=== PATIENT | female | born 1980 | race Caucasian/White ===

== ENCOUNTER 2019-08-21 12:25 | Emergency (ER) | payer BC, SELFPAY ==
[2019-08-21 12:44] VITALS: BP 135/96; PULSE 104; RESP 16; TEMP 36.8; O2SAT 98; BMI 34.3
--- NOTE | 2019-08-21 12:52 | XRR_ITS ---
PROCEDURE INFORMATION: Exam: XR Chest, 1 View Exam date and time: 08/21/2019 1:20 PM Age: 39 years old Clinical indication: Cough; Additional info: Cough/congestion/sob, increased hr x 1 week TECHNIQUE: Imaging protocol: XR of the chest Views: 1 view. COMPARISON: CR Chest 1 [place] [id number] 03/31/2019 9:39 AM FINDINGS: Lungs: Unremarkable. No consolidation. Pleural space: Unremarkable. No pleural effusion. No pneumothorax. Heart/Mediastinum: Unremarkable. No cardiomegaly. Bones/joints: Unremarkable. XR/XR chest 1V portable [id number] IMPRESSION: No acute findings.
[2019-08-21 13:10] LABS: Basophils % 0.2 %; Eosinophils # 0.1 10^3/uL (0.0-0.8); Eosinophils % 0.9 %; Hematocrit 47.8 % (37.0-47.0); Hemoglobin 15.5 g/dL (11.5-15.3); Lymphocytes % 28.2 %; Mean Corpuscular HGB Conc 32.4 g/dL (30.0-36.0); Mean Corpuscular Hemoglobin 28.7 pg (28.0-34.0); Mean Corpuscular Volume 88.5 fL (81-99); Mean Platelet Volume 10.4 fL (7.4-10.4); Monocytes # 0.8 10^3/uL (0.2-0.9); Monocytes % 7.3 %; Neutrophils # 6.7 10^3/uL (1.8-7.7); Neutrophils % 63.1 %; Nucleated Red Blood Cells % 0 %; Platelet Count 345 10^3/cmm (130-400); Red Cell Distribution Width 12.9 % (12.1-15.1); White Blood Count 10.6 10^3/uL (4.0-10.0)
--- NOTE | 2019-08-21 13:18 | ED_ITS ---
Entered by Anitra Wong, acting as scribe for Heather Hughes MD HPI - Chest Pain General: Chief Complaint: Chest Pain Stated Complaint: cp/sob Time Seen by Provider: 08/21/19 13:18 Source: patient and RN notes reviewed Mode of arrival: ambulatory Limitations: no limitations History of Present Illness: HPI narrative: 39 yo female presents to ED with complaints of heart palpitations and chest discomfort. She said it feels like her heart is going to beat out of chest. She said this began last Sunday. She has since quit caffeine and stopped smoking. She started antibiotics for an abscessed tooth on the before her heart palpitations began. She said the palpitations are worse with exertion. She had 4 teeth pulled on Sunday due to the infection spreading. She took Tylenol with codeine on Sunday and Sunday following the extractions but has had no Tylenol with codeine since that day, only taking ibuprofen. She said she was driving to town today when she felt her heart beating in her neck. She began experiencing chest discomfort today. She stated the fastest heart rate that she measured was 111. She is still on amoxicillin and taking ibuprofen for pain. complaint: chest discomfort Onset (ago): day(s) (6) Timing of current episode: episodic and still present Prior episodes: No Onset: during rest and during exertion Pain location: substernal Pain radiation: none Severity: moderate Quality: aching Relieving factors: sitting upright Exacerbating factors: exertion Context: new medications (antibiotic) Associated symptoms: Reports no associated symptoms; Deny abdominal pain, diaphoresis, dyspnea, fever(s), nausea or vomiting Treatment prior to arrival: none Risk Factors: Coronary artery disease risk factors: none Thoracic aortic dissection risk factors: none Pulmonary embolism risk factors: recent surgery (4 tooth extraction) Review of Systems Const: Denies: fever, chills, change in appetite, night sweats or diaphoresis Eyes: Denies: change in vision ENMT: Denies: throat pain or ear pain Card: Denies: swelling of feet/ankles, shortness of breath on exertion or shortness of breath when lying down Resp: Denies: shortness of breath or productive cough GI: Denies: abdominal pain, nausea, vomiting, diarrhea or constipation : Denies: flank pain or difficulty urinating Musc: Denies: back pain Skin/Breast: Denies: rash Neuro: Denies: headache, numbness in extremities or weakness in extremities Psych: Denies: depression Endo: Denies: excessive thirst Juan Manuel/Lymph: Denies: easy bruising PFSH ED PFSH: Social History Smoking and tobacco status: current every day smoker Physical Exam Const: COMMON NORMALS: no apparent distress, oriented x3 and alert GENERAL APPEARANCE: cooperative and well developed; not in distress and not diaphoretic ORIENTATION/CONSCIOUSNESS: Yes awake, Yes oriented to person, Yes oriented to place and Yes oriented to time HENMT: COMMON NORMALS: normocephalic, head/scalp atraumatic, external ears normal, external nose normal and moist oral mucous membranes HEAD & SCALP: normocephalic and atraumatic FACE & SINUS: normal facial exam; no facial tenderness NOSE: external nose normal EXTERNAL EAR: Yes external ears normal MOUTH: oral and palatal mucosa normal, lip normal and tongue normal TEETH & GINGIVA: no abnormal tooth and associated gingiva THROAT: posterior oropharynx normal and uvula midline Eye: COMMON NORMALS: PERRL and EOMs intact bilaterally PUPIL: Yes PERRL Neck/C-Spine: COMMON NORMALS: full ROM, supple and no JVD GENERAL: Yes normal visual inspection and Yes trachea midline CERVICAL SPINE: No cervical spine tenderness Lymph: LYMPHATIC: no lymphadenopathy noted Chest: COMMONS NORMALS: inspection of chest normal Resp: COMMON NORMALS: normal respiratory effort, no use of accessory muscles and clear to auscultation bilaterally EFFORT & INSPECTION: Yes able to speak in complete sentences and Yes symmetric chest movement AUSCULTATION: clear to auscultation bilaterally Cardio: COMMON NORMALS: no JVD, regular rate, regular rhythm, no gallops, no murmurs and peripheral pulses 2+ throughout RATE: regular rate RHYTHM: regular rhythm PERIPHERAL PULSES: pulses 2+ throughout GI: COMMON NORMALS: normal to inspection, nondistended, normoactive bowel sounds, soft to palpation and non-tender PALPATION: Yes soft Back/Pelvis: COMMON NORMALS: thoracic and lumbar spine normal to inspection and thoraco-lumbar ROM normal Extremity: COMMON NORMALS: normal to inspection, full ROM and normal capillary refill Neuro: COMMON NORMALS: oriented x3, CN's II-XII intact bilaterally, moves all extremities, no focal motor deficits and no sensory deficits noted SENSORIUM/ORIENTATION: Yes alert, Yes oriented to person, Yes oriented to place and Yes oriented to time Psych: COMMON NORMALS: mental status grossly normal, thought process normal, cooperative, affect normal, speech normal and activity/motor behavior normal SPEECH: Yes normal speech THOUGHT PROCESS: normal thought process Skin: COMMON NORMALS: no rashes or lesions noted and skin turgor normal GENERAL SKIN EXAM: no rashes or lesions noted and turgor normal Course ED course: patient with symptoms of heart racing - chest discomfort. Episodic for a few days. She reports a history of anxiety and speculates that this could be the cause of her symptoms. She has been a smoker, but no other risk factors for heart disease. She had to leave the ED before she had her work up complete to get her daughter from the bus. I didn't have the chance to talk to her before she left, but I contacted her on the phone and we reviewed her labs and other results. She has an appointment with her PCP on Sunday and will discuss these episodes and their management. Vital Signs: Vital signs: Vital Signs Temperature 98.2 F 08/21/19 12:44 Pulse Rate 78 08/21/19 15:02 Respiratory Rate 15 08/21/19 15:02 Blood Pressure 102/77 08/21/19 15:02 Pulse Oximetry 96 08/21/19 13:24 MDM - Chest Pain Lab Data: Labs: Lab Results 08/21/19 08/21/19 08/21/19 Range/Units 12:58 12:58 12:58 WBC 10.6 H (4.0-10.0) 10^3/ uL RBC 5.40 H (4.1-5.3) 10^6/u L Hgb 15.5 H (11.5-15.3) g/dL Hct 47.8 H (37.0-47.0) % MCV 88.5 (81-99) fL MCH 28.7 (28.0-34.0) pg MCHC 32.4 (30.0-36.0) g/dL RDW 12.9 (12.1-15.1) % Plt Count 345 (130-400) 10^3/c mm MPV 10.4 (7.4-10.4) fL Neut % (Auto) 63.1 % Lymph % (Auto) 28.2 % [place] % (Auto) 7.3 % Eos % (Auto) 0.9 % Baso % (Auto) 0.2 % Neut # (Auto) 6.7 (1.8-7.7) 10^3/u L Lymph # (Auto) 3.0 (0.8-4.8) 10^3/u L [place] # (Auto) 0.8 (0.2-0.9) 10^3/u L Eos # (Auto) 0.1 (0.0-0.8) 10^3/u L Baso # (Auto) 0.0 (0.0-0.1) 10^3/u L Nucleated RBC % (a uto) 0 % Nucleated RBCs # 0.0 /100WBC Sodium 131 L (136-145) mmol/L Potassium 3.7 (3.5-5.1) mmol/L Chloride 93 L (98-107) mmol/L Carbon Dioxide 23 (22-29) mmol/L Anion Gap 18.7 (5-19) BUN 13 (6-20) mg/dL Creatinine 0.7 (0.5-0.9) mg/dL GFR Calculation 93.2 (90-130) mL/min Glucose 103 (65-115) mg/dL Calcium 10.2 (8.5-10.5) mg/dL Total Bilirubin 0.4 (0.15-1.2) mg/dL AST 19 (0-32) U/L ALT 21 (0-33) U/L Alkaline Phosphata se 89 (35-105) IU/L Troponin T Baselin e 6.58 Troponin T 120 Min barbara (0-10) ng/mL Delta Troponin T (0-10) ABS# Total Protein 7.3 (6.6-8.7) g/dL Albumin 4.9 (3.5-5.2) g/dL Globulin 2.4 (1.3-4.6) g/dL HCG, Qual (Negative) 08/21/19 08/21/19 Range/Units 12:58 15:03 WBC (4.0-10.0) 10^3/ uL RBC (4.1-5.3) 10^6/u L Hgb (11.5-15.3) g/dL Hct (37.0-47.0) % MCV (81-99) fL MCH (28.0-34.0) pg MCHC (30.0-36.0) g/dL RDW (12.1-15.1) % Plt Count (130-400) 10^3/c mm MPV (7.4-10.4) fL Neut % (Auto) % Lymph % (Auto) % [place] % (Auto) % Eos % (Auto) % Baso % (Auto) % Neut # (Auto) (1.8-7.7) 10^3/u L Lymph # (Auto) (0.8-4.8) 10^3/u L [place] # (Auto) (0.2-0.9) 10^3/u L Eos # (Auto) (0.0-0.8) 10^3/u L Baso # (Auto) (0.0-0.1) 10^3/u L Nucleated RBC % (a uto) % Nucleated RBCs # /100WBC Sodium (136-145) mmol/L Potassium (3.5-5.1) mmol/L Chloride (98-107) mmol/L Carbon Dioxide (22-29) mmol/L Anion Gap (5-19) BUN (6-20) mg/dL Creatinine (0.5-0.9) mg/dL GFR Calculation (90-130) mL/min Glucose (65-115) mg/dL Calcium (8.5-10.5) mg/dL Total Bilirubin (0.15-1.2) mg/dL AST (0-32) U/L ALT (0-33) U/L Alkaline Phosphata se (35-105) IU/L Troponin T Baselin e Troponin T 120 Min barbara 6.69 (0-10) ng/mL Delta Troponin T 0.11 (0-10) ABS# Total Protein (6.6-8.7) g/dL Albumin (3.5-5.2) g/dL Globulin (1.3-4.6) g/dL HCG, Qual Negative (Negative) Imaging Data^: CXR: Radiologist's impression: [address] [place] [address] XRay Report Signed Patient: DejanLulaLonnie #: [id number] : 1980Acct#:[id number] Age/Sex: 39 / FADM Date: 08/21/19 Loc: ERRoom/Bed: Attending Dr: Ordering Provider/Ordering MD: Janeen Gant Date of Service: 08/21/19 Procedure(s): XR chest 1V portable [id number] Accession Number(s): [id number] Report Number: [id number] PROCEDURE INFORMATION: Exam: XR Chest, 1 View Exam date and time: 08/21/2019 1:20 PM Age: 39 years old Clinical indication: Cough; Additional info: Cough/congestion/sob, increased hr x 1 week TECHNIQUE: Imaging protocol: XR of the chest Views: 1 view. COMPARISON: CR Chest 1 [place] [id number] 03/31/2019 9:39 AM FINDINGS: Lungs: Unremarkable. No consolidation. Pleural space: Unremarkable. No pleural effusion. No pneumothorax. Heart/Mediastinum: Unremarkable. No cardiomegaly. Bones/joints: Unremarkable. XR/XR chest 1V portable [id number] IMPRESSION: No acute findings. Dictated By:Harsh Reyna MD Signed By:Harsh Reyna MDSigned Date/Time:08/21/19 1438 DD/ EKG Data^: EKG 1: EKG interpretation date: 08/21/19 EKG interpretation time: 14:25 Interpretation: rate 82, LAE, non specific ST changes, ST segment flattening Discharge Plan Discharge Patient Disposition: Left Against Medical Advice Referrals: [facility], [facility] [Primary Care Provider] - Discharge Date/Time: 08/21/19 15:32 Coding Level of Care Code ED B2B Sales Representative for Chg Fwd The documentation recorded by the Judith alexis Valerie R, accurately reflects the service I personally performed and the decisions made by Ellen orona Kathryn L, MD Aug 21, 2019 12:25
[2019-08-21 13:24] VITALS: BP 114/77; PULSE 93; RESP 17; O2SAT 96
--- NOTE | 2019-08-21 13:25 | PC.NURSE ---
Patient reports that for about 6 days she has had her heart rate has been high. Patient states her heart rate has been staying between 90-120. Patient reports that last she was placed on an antibiotic for a tooth abscess. Patient states that she started to get chest pain on the way up here while she was on her way to go grocery shopping.
[2019-08-21 13:28] LABS: HCG, Serum Qual Negative (Negative)
[2019-08-21 13:39] LABS: Alanine Aminotransferase 21 U/L (0-33); Albumin Level 4.9 g/dL (3.5-5.2); Alkaline Phosphatase 89 IU/L (35-105); Anion Gap 18.7 (5-19); Aspartate Amino Transferase 19 U/L (0-32); Blood Urea Nitrogen 13 mg/dL (6-20); Calcium 10.2 mg/dL (8.5-10.5); Carbon Dioxide 23 mmol/L (22-29); Chloride 93 mmol/L (98-107); Globulin 2.4 g/dL (1.3-4.6); Glomerular Filtration Rate 93.2 mL/min (90-130); Glucose 103 mg/dL (65-115); Potassium 3.7 mmol/L (3.5-5.1); Sodium 131 mmol/L (136-145); Total Bilirubin 0.4 mg/dL (0.15-1.2); Total Protein 7.3 g/dL (6.6-8.7)
[2019-08-21 13:40] LABS: Troponin(5th) Baseline 6.58
--- NOTE | 2019-08-21 14:52 | ECG_ITS ---
Measurements Intervals [place] Rate: 99 P: 55 VT: 149 QRS: 57 QRSD: 91 T: -22 QT: 350 QTc: 451 SINUS RHYTHM POSSIBLE LEFT ATRIAL ENLARGEMENT [-0.1mV P WAVE IN V1/V2] ST DEVIATION AND MODERATE T-WAVE ABNORMALITY, CONSIDER ANTEROLATERAL ISCHEMIA [-0 [-0.1+ mV T WAVE IN V3-V6] ST DEVIATION AND MODERATE T-WAVE ABNORMALITY, CONSIDER INFERIOR ISCHEMIA [-0.1+ mV mV T WAVE IN II/aVF] Compared to ECG 03/31/2019 16:19:09 Possible ischemia now present T-wave abnormality still present Electronically Signed On 08-21-2019 20:43:14 BR[facility]GE [employer]EVERMAN by Gamal Sanchez M.D. [email or web address]
[2019-08-21 15:02] VITALS: BP 102/77; PULSE 78; RESP 15
[2019-08-21 15:30] LABS: Troponin 5 2HR 6.69 ng/mL (0-10); Troponin 5 2HR Delta 0.11 ABS# (0-10)
== END 2019-08-21 15:32 | disposition left against medical advice (07) ==
PROVIDERS: Physician Assistant; Emergency Provider Emergency Medicine; Family Provider Nurse Practitioner Family; PCP Nurse Practitioner Family
DX: R07.89 Other chest pain (principal); R06.02 Shortness of breath; R00.2 Palpitations; F17.200 Nicotine dependence, unspecified, uncomplicated; Z79.2 Long term (current) use of antibiotics; Z53.29 Procedure and treatment not carried out because of patient's decision for other reasons
CPT/HCPCS: 36415; 71045; 80053; 84484; 84703; 85025; 93005; 99281; 99283

== ENCOUNTER 2019-09-03 22:04 | Emergency (ER) | payer BC, SELFPAY ==
[2019-09-03 22:06] VITALS: BP 137/86; PULSE 101; RESP 18; TEMP 36.8; O2SAT 99; BMI 34.2
[2019-09-04] VITALS (33 sets, daily range): BP systolic 92–124; BP diastolic 49–81; PULSE 82–99; O2SAT 92–99
--- NOTE | 2019-09-04 00:06 | ED_ITS ---
Entered by Dana Avina, acting as scribe for Sejal Blanchard Sep 03, 2019 22:04 HPI - Chest Pain General: Chief Complaint: Chest Pain Stated Complaint: cp Time Seen by Provider: 09/04/19 00:06 Source: patient Mode of arrival: ambulatory History of Present Illness: HPI narrative: 39 y/o female presents to the ED with complaint of chest pain. Pt states she has not been feeling well since Sunday. She was seen by her PCP on Sunday and dx with a virus ( tested negative for Flu). Pt states her symptoms have progressed and tonight she started to feel dizzy, nauseated, congested and experienced chest pressure. She has recently been on Amoxicillin for a tooth abscess. Pt denies any prior heart issues. MD complaint: chest pain and other (viral symptoms) Onset (ago): day(s) Timing of current episode: still present Quality: other (pressure) Relieving factors: nothing Associated symptoms: Deny abdominal pain, diaphoresis, fever(s) or vomiting Review of Systems General: Reports: other (negative unless marked) Const: Denies: fever, body aches, fatigue, malaise or diaphoresis Eyes: Denies: change in vision or blurry vision ENMT: Denies: throat pain, painful swallowing, hoarseness, ear pain, ear discharge or Change in hearing GI: Denies: abdominal pain, vomiting, vomiting blood, coffee grounds in vomit, diarrhea, constipation, cramping, blood in stool or black tarry stool : Denies: flank pain, painful urination, urinary frequency, urinary urgency, decreased urine ouput, urinary incontinence or blood in urine Musc: Denies: neck pain, back pain, extremity pain, extremity swelling, joint pain, joint swelling, joint warmth or joint stiffness Skin/Breast: Denies: rash, skin tenderness or yellow skin Neuro: Denies: headache, numbness in extremities, weakness in extremities, changes in sensation, lack of coordination, difficulty walking, dizziness, vertigo or confusion Endo: Denies: excessive thirst, tired all the time, cold intolerance, excessive sweating, flushing or hot flashes Juan Manuel/Lymph: Denies: easy bruising, easy bleeding, petechiae or enlarged lymph nodes All/Imm: Denies: hives, throat swelling, tongue swelling, facial swelling or acute wheezing PFSH ED PFSH: Social History Smoking and tobacco status: current every day smoker Physical Exam Const: COMMON NORMALS: no apparent distress, oriented x3, no limitations, healthy appearing and well nourished EXAM LIMITATIONS: no altered mental status GENERAL APPEARANCE: cooperative, well kempt and well developed ORIENTATION/CONSCIOUSNESS: Yes awake HENMT: COMMON NORMALS: normocephalic, head/scalp atraumatic, hearing grossly normal bilaterally, external ears normal, EAC's normal, external nose normal and moist oral mucous membranes HEAD & SCALP: normal to inspection, normocephalic and atraumatic FACE & SINUS: normal facial exam and face symmetric NOSE: external nose normal and nares normal EXTERNAL EAR: Yes external ears normal EXTERNAL AUDITORY CANAL: EAC's normal MOUTH: oral and palatal mucosa normal and tongue normal Eye: COMMON NORMALS: PERRL, EOMs intact bilaterally, conjunctivae normal and no scleral icterus GENERAL EYE: normal appearance of both eyes and normal light reflex CONJUNCTIVA: Yes conjunctivae normal SCLERA: sclerae normal CORNEA: Yes corneas normal PUPIL: Yes PERRL DIRECT OPHTHALMOSCOPY: Yes normal light reflex Neck/C-Spine: COMMON NORMALS: full ROM, no lymphadenopathy, supple and no meningeal signs GENERAL: Yes normal visual inspection and Yes trachea midline CERVICAL SPINE: Yes cervical ROM normal Chest: COMMONS NORMALS: inspection of chest normal and palpation of chest normal Resp: EFFORT & INSPECTION: Yes able to speak in complete sentences Cardio: JUGULAR VENOUS DISTENTION: no JVD GI: COMMON NORMALS: soft to palpation, non-tender, no hepatosplenomegaly and no masses INSPECTION: Yes normal to inspection PALPATION: Yes soft and Yes no hepatosplenomegaly : COMMON NORMALS: Yes no CVA tenderness BLADDER/KIDNEY EXAM: Yes no CVA tenderness Back/Pelvis: COMMON NORMALS: no CVA tenderness, thoracic and lumbar spine normal to inspection, no thoracic nor lumbar tenderness and thoraco-lumbar ROM normal Extremity: COMMON NORMALS: normal to inspection, full ROM, normal capillary refill, no joint enlargement, no clubbing, cyanosis or edema and no calf tenderness Neuro: COMMON NORMALS: oriented x3, CN's II-XII intact bilaterally, moves all extremities, no focal motor deficits and no sensory deficits noted MENINGEAL SIGNS: Yes no meningeal signs Psych: COMMON NORMALS: mental status grossly normal, thought process normal, cooperative, affect normal, speech normal and activity/motor behavior normal APPEARANCE: Yes well kempt SPEECH: Yes normal speech THOUGHT PROCESS: normal thought process Skin: COMMON NORMALS: no rashes or lesions noted, skin turgor normal, no jaundice, no petechiae and no mottling GENERAL SKIN EXAM: no rashes or lesions noted and turgor normal Course Vital Signs: Vital signs: Vital Signs Temperature 98.2 F 09/03/19 22:06 Pulse Rate 89 09/04/19 04:05 Respiratory Rate 18 09/03/19 22:06 Blood Pressure 92/52 09/04/19 04:15 Pulse Oximetry 94 09/04/19 04:00 MDM - Chest Pain MDM Narrative: Medical decision making narrative: Sara is a 39-year-old female who comes in complaining of chest pain, cough and congestion. Her EKG shows abnormalities consistent with LVH. Her troponins have been undetectable x2. Her d-dimer was positive but her CT shows no sign of PE. The patient has a heart score of 4 mostly secondary to risk factors. I have recommended and offered to admit her to the hospital for further testing to include a stress test but she refuses. She wants to go home with something for her cough and to be discharged. Patient understands the risks of leaving include ultimately but heart attack but she is certain that this is a bronchitis. I will go and ahead and discharge her home per her request. Lab Data: Attestation: I reviewed the patient's lab results. Labs: Lab Results 09/04/19 09/04/19 09/04/19 Range/Units 01:08 01:08 01:08 WBC 17.0 H (4.0-10.0) 10^3/ uL RBC 5.77 H (4.1-5.3) 10^6/u L Hgb 16.2 H (11.5-15.3) g/dL Hct 48.3 H (37.0-47.0) % MCV 83.7 (81-99) fL MCH 28.1 (28.0-34.0) pg MCHC 33.5 (30.0-36.0) g/dL RDW 13.2 (12.1-15.1) % Plt Count 395 (130-400) 10^3/c mm MPV 9.9 (7.4-10.4) fL Neut % (Auto) 65.2 % Lymph % (Auto) 26.4 % Kleberg % (Auto) 6.6 % Eos % (Auto) 1.0 % Baso % (Auto) 0.3 % Neut # (Auto) 11.1 H (1.8-7.7) 10^3/u L Lymph # (Auto) 4.5 (0.8-4.8) 10^3/u L Kleberg # (Auto) 1.1 H (0.2-0.9) 10^3/u L Eos # (Auto) 0.2 (0.0-0.8) 10^3/u L Baso # (Auto) 0.1 (0.0-0.1) 10^3/u L Nucleated RBC % (a uto) 0 % Nucleated RBCs # 0.0 /100WBC D-Dimer 0.62 H (0-0.59) ug/mIFE U Sodium 126 L (136-145) mmol/L Potassium 4.5 (3.5-5.1) mmol/L Chloride 91 L (98-107) mmol/L Carbon Dioxide 22 (22-29) mmol/L Anion Gap 17.5 (5-19) BUN 12 (6-20) mg/dL Creatinine 0.7 (0.5-0.9) mg/dL GFR Calculation 93.2 (90-130) mL/min Glucose 113 (65-115) mg/dL Calcium 9.8 (8.5-10.5) mg/dL Magnesium 2.3 (1.7-2.3) mg/dL Total Bilirubin 0.6 (0.15-1.2) mg/dL AST 24 (0-32) U/L ALT 30 (0-33) U/L Alkaline Phosphata se 90 (35-105) IU/L Troponin T Baselin e (0-10) ng/mL Troponin T 120 [address] [place] (0-10) ng/mL Delta Troponin T (0-10) ABS# Total Protein 7.8 (6.6-8.7) g/dL Albumin 4.1 (3.5-5.2) g/dL Globulin 3.7 (1.3-4.6) g/dL Lipase 36 (13-60) U/L Urine Color (Yellow) Urine Appearance (CLEAR) Urine pH (5-7) Ur Specific Gravit y (1.005-1.030) Urine Protein (Negative) Urine Glucose (UA) (Normal) Urine Ketones (Negative) Urine Blood (Negative) Urine Nitrate (Negative) Urine Bilirubin (NEGATIVE) Urine Urobilinogen (Negative) mg/dL Ur Leukocyte Tyra ase (Negative) Urine RBC (0-2) /hpf Urine WBC (0-5) /hpf Ur Squamous Epith Cells (0-5) Urine Bacteria (NONE) Urine Opiates Scre en (Negative) ng/mL Ur Barbiturates Sc reen (Negative) ng/mL Ur Phencyclidine S crn (Negative) ng/mL Ur Amphetamines Sc reen (Negative) ng/mL U Benzodiazepines Scrn (Negative) ng/mL Urine Cocaine Scre en (Negative) ng/mL U Marijuana (THC) Screen (Negative) ng/mL Influenza Type A A g (Negative) POC Influenza B Ag (Negative) 09/04/19 09/04/19 09/04/19 Range/Units 01:08 02:20 03:10 WBC (4.0-10.0) 10^3/ uL RBC (4.1-5.3) 10^6/u L Hgb (11.5-15.3) g/dL Hct (37.0-47.0) % MCV (81-99) fL MCH (28.0-34.0) pg MCHC (30.0-36.0) g/dL RDW (12.1-15.1) % Plt Count (130-400) 10^3/c mm MPV (7.4-10.4) fL Neut % (Auto) % Lymph % (Auto) % Kleberg % (Auto) % Eos % (Auto) % Baso % (Auto) % Neut # (Auto) (1.8-7.7) 10^3/u L Lymph # (Auto) (0.8-4.8) 10^3/u L Kleberg # (Auto) (0.2-0.9) 10^3/u L Eos # (Auto) (0.0-0.8) 10^3/u L Baso # (Auto) (0.0-0.1) 10^3/u L Nucleated RBC % (a uto) % Nucleated RBCs # /100WBC D-Dimer (0-0.59) ug/mIFE U Sodium (136-145) mmol/L Potassium (3.5-5.1) mmol/L Chloride (98-107) mmol/L Carbon Dioxide (22-29) mmol/L Anion Gap (5-19) BUN (6-20) mg/dL Creatinine (0.5-0.9) mg/dL GFR Calculation (90-130) mL/min Glucose (65-115) mg/dL Calcium (8.5-10.5) mg/dL Magnesium (1.7-2.3) mg/dL Total Bilirubin (0.15-1.2) mg/dL AST (0-32) U/L ALT (0-33) U/L Alkaline Phosphata se (35-105) IU/L Troponin T Baselin e 6 (0-10) ng/mL Troponin T 120 Min [place] 6.00 (0-10) ng/mL Delta Troponin T 0 (0-10) ABS# Total Protein (6.6-8.7) g/dL Albumin (3.5-5.2) g/dL Globulin (1.3-4.6) g/dL Lipase (13-60) U/L Urine Color (Yellow) Urine Appearance (CLEAR) Urine pH (5-7) Ur Specific Gravit y (1.005-1.030) Urine Protein (Negative) Urine Glucose (UA) (Normal) Urine Ketones (Negative) Urine Blood (Negative) Urine Nitrate (Negative) Urine Bilirubin (NEGATIVE) Urine Urobilinogen (Negative) mg/dL Ur Leukocyte Tyra ase (Negative) Urine RBC (0-2) /hpf Urine WBC (0-5) /hpf Ur Squamous Epith Cells (0-5) Urine Bacteria (NONE) Urine Opiates Scre en (Negative) ng/mL Ur Barbiturates Sc reen (Negative) ng/mL Ur Phencyclidine S crn (Negative) ng/mL Ur Amphetamines Sc reen (Negative) ng/mL U Benzodiazepines Scrn (Negative) ng/mL Urine Cocaine Scre en (Negative) ng/mL U Marijuana (THC) Screen (Negative) ng/mL Influenza Type A A g Negative (Negative) POC Influenza B Ag Negative (Negative) 09/04/19 09/04/19 Range/Units 04:22 04:22 WBC (4.0-10.0) 10^3/ uL RBC (4.1-5.3) 10^6/u L Hgb (11.5-15.3) g/dL Hct (37.0-47.0) % MCV (81-99) fL MCH (28.0-34.0) pg MCHC (30.0-36.0) g/dL RDW (12.1-15.1) % Plt Count (130-400) 10^3/c mm MPV (7.4-10.4) fL Neut % (Auto) % Lymph % (Auto) % Kleberg % (Auto) % Eos % (Auto) % Baso % (Auto) % Neut # (Auto) (1.8-7.7) 10^3/u L Lymph # (Auto) (0.8-4.8) 10^3/u L Kleberg # (Auto) (0.2-0.9) 10^3/u L Eos # (Auto) (0.0-0.8) 10^3/u L Baso # (Auto) (0.0-0.1) 10^3/u L Nucleated RBC % (a uto) % Nucleated RBCs # /100WBC D-Dimer (0-0.59) ug/mIFE U Sodium (136-145) mmol/L Potassium (3.5-5.1) mmol/L Chloride (98-107) mmol/L Carbon Dioxide (22-29) mmol/L Anion Gap (5-19) BUN (6-20) mg/dL Creatinine (0.5-0.9) mg/dL GFR Calculation (90-130) mL/min Glucose (65-115) mg/dL Calcium (8.5-10.5) mg/dL Magnesium (1.7-2.3) mg/dL Total Bilirubin (0.15-1.2) mg/dL AST (0-32) U/L ALT (0-33) U/L Alkaline Phosphata se (35-105) IU/L Troponin T Baselin e (0-10) ng/mL Troponin T 120 [address] [place] (0-10) ng/mL Delta Troponin T (0-10) ABS# Total Protein (6.6-8.7) g/dL Albumin (3.5-5.2) g/dL Globulin (1.3-4.6) g/dL Lipase (13-60) U/L Urine Color Yellow (Yellow) Urine Appearance Clear (CLEAR) Urine pH 5 (5-7) Ur Specific Gravit y 1.005 (1.005-1.030) Urine Protein Neg (Negative) Urine Glucose (UA) Norm (Normal) Urine Ketones Negative (Negative) Urine Blood Neg (Negative) Urine Nitrate Negative (Negative) Urine Bilirubin Neg (NEGATIVE) Urine Urobilinogen Norm (Negative) mg/dL Ur Leukocyte Tyra ase Trace H (Negative) Urine RBC 0-4 H (0-2) /hpf Urine WBC 5-10 H (0-5) /hpf Ur Squamous Epith Cells 10-15 H (0-5) Urine Bacteria 1+ H (NONE) Urine Opiates Scre en Negative (Negative) ng/mL Ur Barbiturates Sc reen Negative (Negative) ng/mL Ur Phencyclidine S crn Negative (Negative) ng/mL Ur Amphetamines Sc reen Negative (Negative) ng/mL U Benzodiazepines Scrn Negative (Negative) ng/mL Urine Cocaine Scre en Negative (Negative) ng/mL U Marijuana (THC) Screen Negative (Negative) ng/mL Influenza Type A A g (Negative) POC Influenza B Ag (Negative) Imaging Data^: CXR: My impression: No acute cardiopulmonary findings CT Chest: Radiologist's impression: [place] [address] CT Scan Report Signed Patient: Sara Wylie Unit #: [id number] : 1980 Age/Sex: 39 / F ADM Date: 09/03/19 Loc: ER Room/Bed: Attending Dr: Ordering Provider/Ordering MD: Sejal Blanchard DO Date of Service: 09/04/19 Procedure(s): CT angio chest PE protcl [id number] Accession Number(s): [id number] Report Number: [id number] PROCEDURE INFORMATION: Exam: CT Angiography Chest With Contrast Exam date and time: 09/04/2019 2:53 AM Age: 39 years old Clinical indication: Cough and shortness of breath; Chest pain; Type not specified; Additional info: Chest pain, positive d-dimer TECHNIQUE: Imaging protocol: Computed tomographic angiography of the chest with intravenous contrast. 3D rendering: MIP and/or 3D reconstructed images were created by the technologist. Total DLP: 625.34 mGy-cm Radiation optimization: All CT scans at this facility use at least one of these dose optimization techniques: automated exposure control; mA and/or kV adjustment per patient size (includes targeted exams where dose is matched to clinical indication); or iterative reconstruction. Contrast material: OMNI 350; Contrast volume: 73.4 ml; Contrast route: 20G; COMPARISON: CR XR chest 1V portable [id number] 09/04/2019 1:28 AM FINDINGS: Heart size within normal limits. No enlarged or abnormal appearing mediastinal/hilar lymph nodes identified. No pulmonary emboli identified. There is no evidence of thoracic aortic aneurysm or dissection within the limits imposed by heart motion artifact. Minimal patchy atelectasis at the periphery of both lungs. No pneumothorax or pleural effusion. Images of the upper abdomen were reviewed. A few small gallstones are noted in the gallbladder. Visualized bones are unremarkable. CT/CT angio chest PE protcl [id number] IMPRESSION: 1. No pulmonary emboli identified. Radiation Dose CTDIVOL = (mGy): DLP = 625.34 (mGy-cm) Dictated By: Molina Andrews MD Signed By: Molina Andrews MD Signed Date/Time: 09/04/19421 DD/ 9 EKG Data^: EKG 1: Attestation: I personally reviewed and interpreted this EKG as follows: EKG interpretation date: 09/04/19 EKG interpretation time: 22:22 Interpretation: Normal sinus rhythm at 93 beats a minute, LVH with ST abnorm alities in leads I, II, III, aVF and V4 through V6, consistent with previous EKG 2: Attestation: I personally reviewed and interpreted this EKG as follows: EKG interpretation date: 09/04/19 EKG interpretation time: 01:14 Interpretation: Normal sinus rhythm at 88 beats a minute, T wave flattening in a and ST segment depression in leads II, III, aVF and V4 through V6 consistent with previous Discharge Plan Discharge Patient Disposition: Left Against Medical Advice Clinical Impression: Bronchitis, Hyponatremia Chest pain Qualifiers: Chest pain type: unspecified Qualified Code(s): R07.9 - Chest pain, unspecified Condition: Stable Prescriptions: No Action lisinopril-hydrochlorothiazide 20-25 mg tablet 1 tab PO DAILY RF: 0 Discharge Orders: Discharge Order (Routine); Ordered 09/04/19 Ordered By: Sejal Blanchard Referrals: [facility], [facility] [Primary Care Provider] - 1-3 days Discharge Diet: Advance as tolerated Discharge Activity: Increase activity as tolerated Activity Restrictions/Additional Instructions: Please return to the ER immediately for any of the signs or symptoms listed on your discharge instruction sheets, worsening/changing of your symptoms, you are not getting better as quickly as expected, or for ANY other cause or concerns. You're leaving AGAINST MEDICAL ADVICE and are at risk for or severe permanent disability by doing so. You are more than welcome to return at any time for recheck and for further evaluation and care suture change you change your mind. Be certain to limit your free water intake to less than 2 L/day and try to drink things like Gatorade and Powerade. Stop your blood pressure medication as it has a diuretic in it until further instructed by your primary care provider. Again you are leaving against my advice and this puts you at risk of or severe permanent disability by doing so. Be certain to follow- up with your doctor as you need further testing on your heart as a heart attack can be life-threatening. Stand Alone Forms: Work/School Release, Against Medical Advice Discharge Date/Time: 09/04/19 06:52 Coding Level of Care Code ED Assistant Merchandiser for Chg Fwd Exam Comprehensive The documentation recorded by the Fabrice alexis Ashley, accurately reflects the service I personally performed and the decisions made by , Sejal Blanchard Sep 03, 2019 22:04
--- NOTE | 2019-09-04 00:17 | XR_ITS ---
WS: [id number] Portable AP upright chest, 09/04/2019 Clinical Data: cough Comparison: Portable chest, 08/21/2019 Findings: No nodules, masses or effusions are seen. The heart is normal. The pulmonary vascularity is not increased. No pneumonia or pneumothorax is seen. XR/XR chest 1V portable [id number] Impression: Negative chest.
--- NOTE | 2019-09-04 00:18 | ECG_ITS ---
Measurements Intervals [place] Rate: 88 P: 56 VA: 145 QRS: 62 QRSD: 86 T: 10 QT: 359 QTc: 435 SINUS RHYTHM MODERATE T-WAVE ABNORMALITY, CONSIDER LATERAL ISCHEMIA [-0.1+ mV T WAVE IN I/a I/aVL/V5/V6] MODERATE T-WAVE ABNORMALITY, CONSIDER INFERIOR ISCHEMIA [-0.1+ mV T WAVE IN II II/aVF] Compared to ECG 08/21/2019 12:43:05 No significant changes Electronically Signed On 09-04-2019 6:23:20 CELL TESTER by Zita Ch M.D. [email or web address]
[2019-09-04] MEDS: aspirin 325 mg Tablet PO (01:17)
[2019-09-04] MEDS: nitroglycerin 0.4 mg sublingual Tablet SUBLINGUAL (01:17)
[2019-09-04 01:24] LABS: Basophils # 0.1 10^3/uL (0.0-0.1); Basophils % 0.3 %; Eosinophils # 0.2 10^3/uL (0.0-0.8); Hematocrit 48.3 % (37.0-47.0); Hemoglobin 16.2 g/dL (11.5-15.3); Lymphocytes # 4.5 10^3/uL (0.8-4.8); Lymphocytes % 26.4 %; Mean Corpuscular HGB Conc 33.5 g/dL (30.0-36.0); Mean Corpuscular Hemoglobin 28.1 pg (28.0-34.0); Mean Corpuscular Volume 83.7 fL (81-99); Mean Platelet Volume 9.9 fL (7.4-10.4); Monocytes # 1.1 10^3/uL (0.2-0.9); Monocytes % 6.6 %; Neutrophils # 11.1 10^3/uL (1.8-7.7); Neutrophils % 65.2 %; Nucleated Red Blood Cells % 0 %; Platelet Count 395 10^3/cmm (130-400); Red Blood Count 5.77 10^6/uL (4.1-5.3); Red Cell Distribution Width 13.2 % (12.1-15.1)
[2019-09-04 01:59] LABS: Troponin(5th) Baseline 6 ng/mL (0-10)
[2019-09-04 02:00] LABS: Alanine Aminotransferase 30 U/L (0-33); Albumin Level 4.1 g/dL (3.5-5.2); Alkaline Phosphatase 90 IU/L (35-105); Anion Gap 17.5 (5-19); Aspartate Amino Transferase 24 U/L (0-32); Blood Urea Nitrogen 12 mg/dL (6-20); Calcium 9.8 mg/dL (8.5-10.5); Carbon Dioxide 22 mmol/L (22-29); Chloride 91 mmol/L (98-107); Globulin 3.7 g/dL (1.3-4.6); Glomerular Filtration Rate 93.2 mL/min (90-130); Glucose 113 mg/dL (65-115); Lipase 36 U/L (13-60); Magnesium 2.3 mg/dL (1.7-2.3); Potassium 4.5 mmol/L (3.5-5.1); Sodium 126 mmol/L (136-145); Total Bilirubin 0.6 mg/dL (0.15-1.2); Total Protein 7.8 g/dL (6.6-8.7)
[2019-09-04 02:13] LABS: D Dimer 0.62 ug/mIFEU (0-0.59)
--- NOTE | 2019-09-04 02:18 | ECG_ITS ---
Measurements Intervals [place] Rate: 93 P: 0 ID: 138 QRS: 59 QRSD: 87 T: 5 QT: 350 QTc: [address] & T-WAVE ABNORMALITY Compared to ECG 08/21/2019 12:43:05 Possible ischemia no longer present T-wave abnormality still present Electronically Signed On 09-04-2019 6:36:12 EQUESTRIAN TRAINER by Zita Ch M.D. [id number]
[2019-09-04] MEDS: ondansetron 2 mg/ML SDV 2 mL 4 MG IVP ×2 (02:20→06:31)
--- NOTE | 2019-09-04 02:27 | CTR_ITS ---
PROCEDURE INFORMATION: Exam: CT Angiography Chest With Contrast Exam date and time: 09/04/2019 2:53 AM Age: 39 years old Clinical indication: Cough and shortness of breath; Chest pain; Type not specified; Additional info: Chest pain, positive d-dimer TECHNIQUE: Imaging protocol: Computed tomographic angiography of the chest with intravenous contrast. 3D rendering: MIP and/or 3D reconstructed images were created by the technologist. Total DLP: 625.34 mGy-cm Radiation optimization: All CT scans at this facility use at least one of these dose optimization techniques: automated exposure control; mA and/or kV adjustment per patient size (includes targeted exams where dose is matched to clinical indication); or iterative reconstruction. Contrast material: OMNI 350; Contrast volume: 73.4 ml; Contrast route: 20G; COMPARISON: CR XR chest 1V portable [id number] 09/04/2019 1:28 AM FINDINGS: Heart size within normal limits. No enlarged or abnormal appearing mediastinal/hilar lymph nodes identified. No pulmonary emboli identified. There is no evidence of thoracic aortic aneurysm or dissection within the limits imposed by heart motion artifact. Minimal patchy atelectasis at the periphery of both lungs. No pneumothorax or pleural effusion. Images of the upper abdomen were reviewed. A few small gallstones are noted in the gallbladder. Visualized bones are unremarkable. CT/CT angio chest PE protcl [id number] IMPRESSION: 1. No pulmonary emboli identified. Radiation Dose CTDIVOL = (mGy): DLP = 625.34 (mGy-cm)
[2019-09-04 03:01] LABS: Influenza A by IFA Negative (Negative); Influenza B by IFA Negative (Negative)
[2019-09-04] MEDS: iohexol 350 mg/mL 100 mL Btl IV (03:36)
[2019-09-04 03:43] LABS: Troponin 5 2HR Delta 0 ABS# (0-10)
[2019-09-04] MEDS: sodium chloride 0.9% 1,000 ML 999 ML IV (04:00)
[2019-09-04 04:32] LABS: Bilirubin Urine Neg (NEGATIVE); Blood Urine Neg (Negative); Glucose Urine UA Norm (Normal); Ketones Urine Negative (Negative); Leukocyte Esterase Urine Trace (Negative); Nitrate Urine Negative (Negative); Protein Urine Neg (Negative); Specific Gravity, Urine 1.005 (1.005-1.030); Urine Appearance Clear (CLEAR); Urine Color Yellow (Yellow); Urobilinogen Urine Norm (Negative); pH Urine 5 (5-7)
[2019-09-04 04:33] LABS: Add Urine Culture? No; Bacteria Urine 1+; RBC Urine 0-4 /hpf (0-2)
--- NOTE | 2019-09-04 06:18 | ECG_ITS ---
Measurements Intervals [place] Rate: 93 P: 0 IL: 138 QRS: 59 QRSD: 87 T: 5 QT: 350 QTc: [address] & T-WAVE ABNORMALITY Compared to ECG 08/21/2019 12:43:05 Possible ischemia no longer present T-wave abnormality still present Electronically Signed On 09-04-2019 6:36:22 LEAD SOFTWARE DEVELOPER by Zita Ch M.D. [email or web address]
[2019-09-04] MEDS: ketorolac 30 mg/mL INJ 10 MG IVP (06:31)
[2019-09-04 06:53] LABS: Amphetamines Screen Urine Negative (Negative); Barbiturates Screen Urine Negative (Negative); Benzodiazepines Screen Urine Negative (Negative); Cocaine Screen Urine Negative (Negative); Opiate Screen Urine Negative (Negative); PCP Screen Urine Negative (Negative); THC Screen Urine Negative (Negative)
== END 2019-09-04 06:52 | disposition left against medical advice (07) ==
PROVIDERS: Emergency Provider Emergency Medicine; Family Provider Nurse Practitioner Family; PCP Nurse Practitioner Family
DX: J40 Bronchitis, not specified as acute or chronic (principal); E87.1 Hypo-osmolality and hyponatremia; R07.9 Chest pain, unspecified; F17.200 Nicotine dependence, unspecified, uncomplicated; Z53.29 Procedure and treatment not carried out because of patient's decision for other reasons
CPT/HCPCS: 36415; 71045; 71275; 80053; 80307; 81001; 83690; 83735; 84484; 85025; 85378; 87804; 93005; 96360; 96361; 96374; 96375; 99284; A9270; J1885; J2405; J7030; Q9967

== ENCOUNTER 2019-09-05 12:07 | Emergency (ER) | payer BC, SELFPAY ==
[2019-09-05 12:10] VITALS: BP 133/90; PULSE 93; RESP 16; TEMP 36.7; O2SAT 99; BMI 34.5
--- NOTE | 2019-09-05 12:10 | ED_ITS ---
Entered by Anitra Wong, acting as scribe for HPI - Chest Pain General: Chief Complaint: Chest Pain Stated Complaint: CHEST PAIN/ R ABDOMINAL PAIN Time Seen by Provider: 09/05/19 12:08 Source: patient, EMS, RN notes reviewed and old records reviewed Mode of arrival: EMS Limitations: no limitations History of Present Illness: HPI narrative: 39 yo female presents to ED with complaints of chest pain. The patient was seen here with chest discomfort and abdominal pain 2 weeks ago (08.21.2019). She said she feels like she is congested and and needs to cough up phlegm. She said she had nausea. Patient was seen here 2 days ago and had an ultrasound that showed gallstones. Patient seen in clinic today we did an EKG and they were concerned with the EKG findings. Patient states she is currently pain-free. MD complaint: chest pain Pertinent past history: other (prior stents) Onset (ago): hour(s) (today) Timing of current episode: episodic Prior episodes: Yes Onset: during rest Pain location: substernal Pain radiation: none Severity: mild Quality: sharp Relieving factors: nothing Exacerbating factors: nothing Associated symptoms: Reports nausea; Deny dyspnea or fever(s) Treatment prior to arrival: aspirin and other (zofran) Risk Factors: Coronary artery disease risk factors: smoking history Thoracic aortic dissection risk factors: none Review of Systems Const: Denies: fever, chills, body aches or change in appetite Eyes: Denies: blurry vision or eye discomfort ENMT: Denies: dental pain Card: Reports: chest pain Resp: Denies: shortness of breath GI: Reports: nausea : Denies: painful urination Musc: Denies: neck pain or back pain Skin/Breast: Denies: rash Neuro: Denies: headache Psych: Denies: depression Juan Manuel/Lymph: Denies: easy bruising All/Imm: Denies: hives PFSH ED PFSH: Social History Smoking and tobacco status: current every day smoker Physical Exam Const: COMMON NORMALS: no apparent distress, oriented x3 and healthy appearing HENMT: COMMON NORMALS: normocephalic and head/scalp atraumatic HEAD & SCALP: normocephalic and atraumatic Eye: COMMON NORMALS: PERRL and EOMs intact bilaterally PUPIL: Yes PERRL Neck/C-Spine: COMMON NORMALS: full ROM and supple Chest: COMMONS NORMALS: inspection of chest normal and palpation of chest normal Resp: COMMON NORMALS: normal respiratory effort, no retractions, no use of accessory muscles and clear to auscultation bilaterally AUSCULTATION: clear to auscultation bilaterally Cardio: COMMON NORMALS: regular rate, regular rhythm and no murmurs RATE: regular rate RHYTHM: regular rhythm GI: COMMON NORMALS: normal to inspection, nondistended, normoactive bowel sounds, soft to palpation, non-tender and no masses PALPATION: Yes soft Extremity: COMMON NORMALS: normal to inspection and full ROM Neuro: COMMON NORMALS: oriented x3, moves all extremities and no focal motor deficits Psych: COMMON NORMALS: mental status grossly normal, thought process normal and cooperative THOUGHT PROCESS: normal thought process Skin: COMMON NORMALS: no rashes or lesions noted and no wounds GENERAL SKIN EXAM: no rashes or lesions noted Course Vital Signs: Vital signs: Vital Signs Temperature 98.1 F 09/05/19 12:10 Pulse Rate 95 09/05/19 13:30 Respiratory Rate 16 09/05/19 13:30 Blood Pressure 104/83 09/05/19 13:30 Pulse Oximetry 96 09/05/19 13:30 MDM - Chest Pain MDM Narrative: Medical decision making narrative: Patient presents here with abdominal pain and does have gallstones and likely has pain from that. Chest pain is been for days and is more related to her gallbladder likely. Her troponin here is negative and EKG shows no acute changes. Patient is well- appearing here and has no pain currently. She is stable for discharge and we will get her set up with surgery outpatient. Lab Data: Labs: Lab Results 09/05/19 09/05/19 09/05/19 Range/Units 12:48 12:48 12:48 WBC 11.5 H (4.0-10.0) 10^3/ uL RBC 4.98 (4.1-5.3) 10^6/u L Hgb 13.7 (11.5-15.3) g/dL Hct 41.2 (37.0-47.0) % MCV 82.7 (81-99) fL MCH 27.5 L (28.0-34.0) pg MCHC 33.3 (30.0-36.0) g/dL RDW 13.2 (12.1-15.1) % Plt Count 372 (130-400) 10^3/c mm MPV 9.6 (7.4-10.4) fL Neut % (Auto) 67.2 % Lymph % (Auto) 25.9 % [place] % (Auto) 5.1 % Eos % (Auto) 1.1 % Baso % (Auto) 0.3 % Neut # (Auto) 7.7 (1.8-7.7) 10^3/u L Lymph # (Auto) 3.0 (0.8-4.8) 10^3/u L [place] # (Auto) 0.6 (0.2-0.9) 10^3/u L Eos # (Auto) 0.1 (0.0-0.8) 10^3/u L Baso # (Auto) 0.0 (0.0-0.1) 10^3/u L Nucleated RBC % (a uto) 0 % Nucleated RBCs # 0.0 /100WBC Sodium 136 (136-145) mmol/L Potassium 4.0 (3.5-5.1) mmol/L Chloride 102 (98-107) mmol/L Carbon Dioxide 21 L (22-29) mmol/L Anion Gap 17.0 (5-19) BUN 9 (6-20) mg/dL Creatinine 0.6 (0.5-0.9) mg/dL GFR Calculation 111.3 (90-130) mL/min Glucose 98 (65-115) mg/dL Calcium 9.4 (8.5-10.5) mg/dL Total Bilirubin 0.4 (0.15-1.2) mg/dL AST 16 (0-32) U/L ALT 22 (0-33) U/L Alkaline Phosphata se 82 (35-105) IU/L Troponin T Baselin e 6 (0-10) ng/mL Total Protein 7.3 (6.6-8.7) g/dL Albumin 4.0 (3.5-5.2) g/dL Globulin 3.3 (1.3-4.6) g/dL Lipase 36 (13-60) U/L Imaging Data^: CXR: Radiologist's impression: [address] [address] XRay Report Signed Patient: Jackelyn Wylie #: [id number] : 1980Acct#:[id number] Age/Sex: 39 / FADM Date: 09/05/19 Loc: ERRoom/Bed: Attending Dr: Ordering Provider/Ordering MD: Bharati De La Torre MD Date of Service: 09/05/19 Procedure(s): XR chest 1V portable [id number] Accession Number(s): [id number] Report Number: [id number] PROCEDURE INFORMATION: Exam: XR Chest, 1 View Exam date and time: 09/05/2019 12:40 PM Age: 39 years old Clinical indication: Cough; Chest pain TECHNIQUE: Imaging protocol: XR of the chest Views: 1 view. COMPARISON: CR XR chest 1V portable [id number] 09/04/2019 1:28 AM FINDINGS: Lungs: No lung consolidation or pulmonary edema. Pleural space: No pleural effusion or pneumothorax. Heart/Mediastinum: The cardiac silhouette is not enlarged. The mediastinal contours are normal. Bones/joints: No acute osseous abnormality. XR/XR chest 1V portable [id number] IMPRESSION: No acute abnormality. Dictated By:Adriano Dimas Signed By:Joelle Dimas Date/Time:09/05/19 1316 DD/ EKG Data^: EKG 1: EKG interpretation date: 09/05/19 EKG interpretation time: 12:23 Interpretation: nsr hr 77 t wave inversion in lateral and inferior leads. unchanged from previous ekgs qrs 88 qtc 377 Discharge Plan Discharge Patient Disposition: Home, Self-Care Clinical Impression: Biliary colic Chest pain Qualifiers: Chest pain type: unspecified Qualified Code(s): R07.9 - Chest pain, unspecified Condition: Stable Prescriptions: [place] 5-325 mg tablet 1 tab PO Q6H PRN (Reason: pain) Qty: 14 RF: 0 Zofran 4 mg tablet 4 mg PO QID PRN (Reason: nausea and vomiting) Qty: 14 RF: 0 No Action lisinopril-hydrochlorothiazide 20-25 mg tablet 1 tab PO DAILY RF: 0 Discharge Orders: Discharge Order (Routine); Ordered 09/05/19 Ordered By: Bharati De La Torre Referrals: Romario Carey MD [Physician] - [facility], [facility] [Primary Care Provider] - 4-7 days Discharge Diet: Advance as tolerated Discharge Activity: Resume usual activity Patient Instructions: Abdominal Pain (ED) Discharge Date/Time: 09/05/19 13:31 Coding Level of Care Code ED [place] for Chg Fwd Exam Comprehensive The documentation recorded by the Judith alexis Valerie R, accurately reflects the service I personally performed and the decisions made by iWl orona Korby, MD
--- NOTE | 2019-09-05 12:13 | XRR_ITS ---
PROCEDURE INFORMATION: Exam: XR Chest, 1 View Exam date and time: 09/05/2019 12:40 PM Age: 39 years old Clinical indication: Cough; Chest pain TECHNIQUE: Imaging protocol: XR of the chest Views: 1 view. COMPARISON: CR XR chest 1V portable [id number] 09/04/2019 1:28 AM FINDINGS: Lungs: No lung consolidation or pulmonary edema. Pleural space: No pleural effusion or pneumothorax. Heart/Mediastinum: The cardiac silhouette is not enlarged. The mediastinal contours are normal. Bones/joints: No acute osseous abnormality. XR/XR chest 1V portable [id number] IMPRESSION: No acute abnormality.
[2019-09-05 12:27] VITALS: RESP 16; O2SAT 97
[2019-09-05 12:28] VITALS: RESP 16
[2019-09-05] MEDS: ondansetron 2 mg/ML SDV 2 mL 4 MG IVP (12:30)
--- NOTE | 2019-09-05 12:35 | US_ITS ---
WS: [id number] Gallbladder ultrasound, 09/05/2019 Clinical Data: abd pain Comparison: None. Findings: The gallbladder shows stones. The wall measures 3.0 mm with no pericholecystic fluid. The common bile duct is 4.9 mm and there are no intrahepatic ductal abnormalities. Liver shows no cysts, masses or dilated intrahepatic ducts. The liver measures 12.92 cm in greatest A P diameter. The pancreas is not obscured by overlying bowel gas but no cyst, pseudocyst, or evidence of pancreati tis is noted. Right kidney measures 4.52 x 4.71 x 10.3 cm and no cyst, masses or hydronephrosis can be seen. The aorta and inferior vena cava show no vascular abnormalities. US/US gall bladder [id number] Impression: Cholelithiasis.
[2019-09-05 12:57] LABS: Basophils % 0.3 %; Eosinophils # 0.1 10^3/uL (0.0-0.8); Eosinophils % 1.1 %; Hematocrit 41.2 % (37.0-47.0); Hemoglobin 13.7 g/dL (11.5-15.3); Lymphocytes % 25.9 %; Mean Corpuscular HGB Conc 33.3 g/dL (30.0-36.0); Mean Corpuscular Hemoglobin 27.5 pg (28.0-34.0); Mean Corpuscular Volume 82.7 fL (81-99); Mean Platelet Volume 9.6 fL (7.4-10.4); Monocytes # 0.6 10^3/uL (0.2-0.9); Monocytes % 5.1 %; Neutrophils # 7.7 10^3/uL (1.8-7.7); Neutrophils % 67.2 %; Nucleated Red Blood Cells % 0 %; Platelet Count 372 10^3/cmm (130-400); Red Blood Count 4.98 10^6/uL (4.1-5.3); Red Cell Distribution Width 13.2 % (12.1-15.1); White Blood Count 11.5 10^3/uL (4.0-10.0)
[2019-09-05 13:12] LABS: Alanine Aminotransferase 22 U/L (0-33); Alkaline Phosphatase 82 IU/L (35-105); Aspartate Amino Transferase 16 U/L (0-32); Blood Urea Nitrogen 9 mg/dL (6-20); Calcium 9.4 mg/dL (8.5-10.5); Carbon Dioxide 21 mmol/L (22-29); Chloride 102 mmol/L (98-107); Globulin 3.3 g/dL (1.3-4.6); Glomerular Filtration Rate 111.3 mL/min (90-130); Glucose 98 mg/dL (65-115); Lipase 36 U/L (13-60); Sodium 136 mmol/L (136-145); Total Bilirubin 0.4 mg/dL (0.15-1.2); Total Protein 7.3 g/dL (6.6-8.7)
[2019-09-05 13:14] LABS: Troponin(5th) Baseline 6 ng/mL (0-10)
[2019-09-05 13:30] VITALS: BP 104/83; PULSE 95; RESP 16; O2SAT 96
--- NOTE | 2019-09-05 18:13 | ECG_ITS ---
Measurements Intervals [place] Rate: 77 P: 59 FL: 156 QRS: 67 QRSD: 88 T: -12 QT: 346 QTc: 392 SINUS RHYTHM MODERATE T-WAVE ABNORMALITY, CONSIDER LATERAL ISCHEMIA [-0.1+ mV T WAVE IN I/aVL/V5/V6] MODERATE T-WAVE ABNORMALITY, CONSIDER INFERIOR ISCHEMIA [-0.1+ mV T WAVE IN II/aVF] Compared to ECG 09/04/2019 01:14:49 No significant changes Electronically Signed On 09-06-2019 7:57:49 SPORTS MANAGER by Zita Ch M.D. [id number]
--- NOTE | 2019-09-08 11:36 | DCPLANNER ---
account manager b2b had message to schedule a follow up appointment for patient with Dr. Carey. account manager b2b called the office of Dr. Carey, spoke with Violeta, was told that the first available appointment would be September 22, or computer was down not for sure on exact date. account manager b2b then called [facility], spoke with Angie, an appointment was scheduled for Monday, September 09, 2019 at 1:[address] Zavaleta. account manager b2b called patient and explained that when Dr. Villa office would be able to see patient and when [facility] would be able to see patient. Patient stated that she would take the appointment scheduled with [facility].
--- NOTE | 2019-09-18 10:04 | DCPLANNER ---
Patient did attend appointment scheduled for 09.09.19 with [facility].
== END 2019-09-05 13:31 | disposition home or self-care (01) ==
PROVIDERS: Emergency Provider Emergency Medicine; Family Provider Nurse Practitioner Family; PCP Nurse Practitioner Family
DX: K80.70 Calculus of gallbladder and bile duct without cholecystitis without obstruction (principal); R07.9 Chest pain, unspecified; F17.200 Nicotine dependence, unspecified, uncomplicated
CPT/HCPCS: 36415; 71045; 76705; 80053; 83690; 84484; 85025; 93005; 96374; 96375; 99282; 99284; J2405

== ENCOUNTER 2019-09-15 21:48 | Emergency (ER) | payer BC, SELFPAY ==
[2019-09-15 22:00] VITALS: BP 148/97; PULSE 84; RESP 16; TEMP 36.9; O2SAT 96; BMI 34.5
[2019-09-15 22:29] LABS: Basophils % 0.3 %; Eosinophils # 0.4 10^3/uL (0.0-0.8); Hemoglobin 14.3 g/dL (11.5-15.3); Lymphocytes # 3.3 10^3/uL (0.8-4.8); Lymphocytes % 31.5 %; Mean Corpuscular HGB Conc 33.3 g/dL (30.0-36.0); Mean Corpuscular Hemoglobin 28.8 pg (28.0-34.0); Mean Corpuscular Volume 86.7 fL (81-99); Mean Platelet Volume 9.7 fL (7.4-10.4); Monocytes # 0.6 10^3/uL (0.2-0.9); Monocytes % 5.8 %; Neutrophils # 6.1 10^3/uL (1.8-7.7); Nucleated Red Blood Cells % 0 %; Platelet Count 352 10^3/cmm (130-400); Red Blood Count 4.96 10^6/uL (4.1-5.3); Red Cell Distribution Width 13.3 % (12.1-15.1); White Blood Count 10.5 10^3/uL (4.0-10.0)
[2019-09-15 22:43] LABS: Alanine Aminotransferase 17 U/L (0-33); Albumin Level 4.2 g/dL (3.5-5.2); Alkaline Phosphatase 82 IU/L (35-105); Anion Gap 15.9 (5-19); Aspartate Amino Transferase 16 U/L (0-32); Blood Urea Nitrogen 10 mg/dL (6-20); Calcium 9.8 mg/dL (8.5-10.5); Carbon Dioxide 22 mmol/L (22-29); Chloride 107 mmol/L (98-107); Glomerular Filtration Rate 93.2 mL/min (90-130); Glucose 112 mg/dL (65-115); Lipase 31 U/L (13-60); Osmolality Calculated 289 mOsm/kg (285-295); Potassium 3.9 mmol/L (3.5-5.1); Sodium 141 mmol/L (136-145); Total Bilirubin 0.2 mg/dL (0.15-1.2); Total Protein 7.2 g/dL (6.6-8.7)
[2019-09-16 00:01] VITALS: BP 141/103; PULSE 84; RESP 18; O2SAT 98
--- NOTE | 2019-09-16 00:05 | ED_ITS ---
Entered by Haylee Diana, acting as scribe for Bharati De La Torre MD Sep 15, 2019 21:48 HPI - Abdominal Pain General: Chief Complaint: Abdominal Pain Stated Complaint: adb/back pain Time Seen by Provider: 09/16/19 00:03 Source: patient Mode of arrival: ambulatory Limitations: no limitations History of Present Illness: HPI narrative: 39 yo f came to the er for abd pain. Pt said that she has done seen to have her gallbladder taken out. Doctor wants to do a egd and a colonoscopy before they take her gallbladder. Pt said that the pain is located in the lower and upper right quad. Patient states that today her abdominal pain is worsened especially after eating. Is sharp in nature and rates it an 8 out of 10. Denies any nausea or vomiting. MD elicited complaint: abdominal pain Pertinent past history: none Onset (ago): day(s) (today) Pain Consistency: constant Location: RUQ and RLQ Severity: moderate Quality: stabbing Radiation: none Migration to: no migration Exacerbating factors: nothing Relieving factors: nothing Associated Symptoms: Reports no associated symptoms; Denies chills, diarrhea, dysuria, fever(s), nausea and vomiting Related Data: Patient : No Review of Systems General: Reports: other (negative unless marked) Const: Denies: fever, chills, body aches or change in appetite Eyes: Denies: blurry vision or eye discomfort ENMT: Denies: throat pain or dental pain Card: Denies: chest pain Resp: Denies: shortness of breath GI: Reports: abdominal pain; Denies: nausea, vomiting or diarrhea : Denies: painful urination Musc: Denies: neck pain or back pain Skin/Breast: Denies: rash Neuro: Denies: headache Psych: Denies: depression Juan Manuel/Lymph: Denies: easy bruising All/Imm: Denies: hives PFSH ED PFSH: Medical History Cholelithiasis History of cervical cancer Surgical History Abdominal pain History of ankle surgery right= 5 different surgeries, History of History of hysterectomy Family History Denies family history of Anesthesia complication Bleeding disorder Social History Smoking and tobacco status: current every day smoker Physical Exam Const: COMMON NORMALS: no apparent distress, oriented x3 and healthy appearing HENMT: COMMON NORMALS: normocephalic and head/scalp atraumatic HEAD & SCALP: normocephalic and atraumatic Eye: COMMON NORMALS: PERRL and EOMs intact bilaterally PUPIL: Yes PERRL Neck/C-Spine: COMMON NORMALS: full ROM and supple Chest: COMMONS NORMALS: inspection of chest normal and palpation of chest normal Resp: COMMON NORMALS: normal respiratory effort, no retractions, no use of accessory muscles and clear to auscultation bilaterally AUSCULTATION: clear to auscultation bilaterally Cardio: COMMON NORMALS: regular rate, regular rhythm and no murmurs RATE: regular rate RHYTHM: regular rhythm GI: COMMON NORMALS: normal to inspection, nondistended, normoactive bowel sounds, soft to palpation, non-tender and no masses PALPATION: Yes soft Extremity: COMMON NORMALS: normal to inspection and full ROM Neuro: COMMON NORMALS: oriented x3, moves all extremities and no focal motor deficits Psych: COMMON NORMALS: mental status grossly normal, thought process normal and cooperative THOUGHT PROCESS: normal thought process Skin: COMMON NORMALS: no rashes or lesions noted and no wounds GENERAL SKIN EXAM: no rashes or lesions noted Course Vital Signs: Vital signs: Vital Signs Temperature 98.4 F 09/15/19 22:00 Pulse Rate 84 09/16/19 00:01 Respiratory Rate 18 09/16/19 00:27 Blood Pressure 141/103 09/16/19 00:01 Pulse Oximetry 99 09/16/19 00:27 MDM - Abdominal Pain MDM Narrative: Medical decision making narrative: Patient presents with abdominal pain. She has known gallstones. Patient's white count here is normal her pain is much improved and she has no tenderness at discharge. She has no signs of cholecystitis here. She is following with Dr. Zavaleta. We will start her on Prilosec as well. She is to return to the ER if worsening. She understands and agrees to the plan. Lab Data: Labs: Lab Results 09/15/19 09/15/1920 Range/Units 22:06 22:06 00:25 WBC 10.5 H (4.0-10.0) 10^3/ uL RBC 4.96 (4.1-5.3) 10^6/u L Hgb 14.3 (11.5-15.3) g/dL Hct 43.0 (37.0-47.0) % MCV 86.7 (81-99) fL MCH 28.8 (28.0-34.0) pg MCHC 33.3 (30.0-36.0) g/dL RDW 13.3 (12.1-15.1) % Plt Count 352 (130-400) 10^3/c mm MPV 9.7 (7.4-10.4) fL Neut % (Auto) 58.0 % Lymph % (Auto) 31.5 % [place] % (Auto) 5.8 % Eos % (Auto) 4.0 % Baso % (Auto) 0.3 % Neut # (Auto) 6.1 (1.8-7.7) 10^3/u L Lymph # (Auto) 3.3 (0.8-4.8) 10^3/u L [place] # (Auto) 0.6 (0.2-0.9) 10^3/u L Eos # (Auto) 0.4 (0.0-0.8) 10^3/u L Baso # (Auto) 0.0 (0.0-0.1) 10^3/u L Nucleated RBC % (a uto) 0 % Nucleated RBCs # 0.0 /100WBC Sodium 141 (136-145) mmol/L Potassium 3.9 (3.5-5.1) mmol/L Chloride 107 (98-107) mmol/L Carbon Dioxide 22 (22-29) mmol/L Anion Gap 15.9 (5-19) BUN 10 (6-20) mg/dL Creatinine 0.7 (0.5-0.9) mg/dL GFR Calculation 93.2 (90-130) mL/min Glucose 112 (65-115) mg/dL Calculated Osmolal ity 289 (285-295) mOsm/k g Calcium 9.8 (8.5-10.5) mg/dL Total Bilirubin 0.2 (0.15-1.2) mg/dL AST 16 (0-32) U/L ALT 17 (0-33) U/L Alkaline Phosphata se 82 (35-105) IU/L Total Protein 7.2 (6.6-8.7) g/dL Albumin 4.2 (3.5-5.2) g/dL Globulin 3.0 (1.3-4.6) g/dL Lipase 31 (13-60) U/L Urine Color Yellow (Yellow) Urine Appearance Hazy A (CLEAR) Urine pH 5 (5-7) Ur Specific Gravit y 1.025 (1.005-1.030) Urine Protein Neg (Negative) Urine Glucose (UA) Norm (Normal) Urine Ketones Negative (Negative) Urine Blood Neg (Negative) Urine Nitrate Negative (Negative) Urine Bilirubin Neg (NEGATIVE) Urine Urobilinogen Norm (Negative) mg/dL Ur Leukocyte Tyra ase Negative (Negative) Urine RBC 5-10 H (0-2) /hpf Urine WBC None (0-5) /hpf Ur Squamous Epith Cells 15-25 H (0-5) Urine Bacteria 2+ H (NONE) Discharge Plan Discharge Patient Disposition: Home, Self-Care Clinical Impression: Abdominal pain Qualifiers: Abdominal location: right upper quadrant Qualified Code(s): R10.11 - Right upper quadrant pain Condition: Stable Prescriptions: New Prilosec OTC 20 mg tablet,delayed release (DR/EC) 20 mg PO DAILY 84 Days RF: 0 No Action lisinopril-hydrochlorothiazide 20-25 mg tablet 1 tab PO DAILY RF: 0 hydrocodone-acetaminophen [[place]] 5-325 mg tablet 1 tab PO Q6H PRN (Reason: pain) Qty: 14 RF: 0 ondansetron HCl [Zofran] 4 mg tablet 4 mg PO QID PRN (Reason: nausea and vomiting) Qty: 14 RF: 0 Discharge Orders: Discharge Order (Routine); Ordered 09/16/19 Ordered By: Bharati De La Torre Referrals: [facility], [facility] [Primary Care Provider] - 1-3 days Discharge Diet: Advance as tolerated Discharge Activity: Resume usual activity Patient Instructions: Abdominal Pain (ED) Coding Level of Care Code ED Special Education Teaching Assistant for [facility] Fwd The documentation recorded by the Lebron alexis Stephanie Lyn, accurately reflects the service I personally performed and the decisions made by me, Bharati De La Torre MD Sep 15, 2019 21:48
[2019-09-16 00:27] VITALS: RESP 18; O2SAT 99
[2019-09-16] MEDS: ondansetron 2 mg/ML SDV 2 mL 4 MG IVP (00:27)
[2019-09-16] MEDS: HYDROmorphone 1 mg/mL INJ 1 mL IVP (00:27)
[2019-09-16 00:39] LABS: Urine Appearance Hazy (CLEAR); Urine Color Yellow (Yellow); pH Urine 5 (5-7)
[2019-09-16 00:40] LABS: Add Urine Microscopic? YES; Bilirubin Urine Neg (NEGATIVE); Blood Urine Neg (Negative); Glucose Urine UA Norm (Normal); Ketones Urine Negative (Negative); Leukocyte Esterase Urine Negative (Negative); Nitrate Urine Negative (Negative); Protein Urine Neg (Negative); Specific Gravity, Urine 1.025 (1.005-1.030); Urobilinogen Urine Norm (Negative)
[2019-09-16 00:42] LABS: Add Urine Culture? No; Bacteria Urine 2+; Squamous Epithelial Cell Urine 15-25 (0-5)
[2019-09-16 01:09] VITALS: BP 139/106; PULSE 83; RESP 18; O2SAT 96
== END 2019-09-16 01:10 | disposition home or self-care (01) ==
PROVIDERS: Emergency Provider Emergency Medicine; Family Provider Nurse Practitioner Family; PCP Nurse Practitioner Family
DX: R10.9 Unspecified abdominal pain (principal); F17.200 Nicotine dependence, unspecified, uncomplicated
CPT/HCPCS: 12345; 36415; 80053; 81001; 83690; 85025; 96374; 96375; 99282; 99283; J1170; J2405

== ENCOUNTER 2019-09-17 08:52 | Day surgery (SDC) | payer BC, SELFPAY ==
[2019-09-16 10:28] VITALS: BMI 34.5
--- NOTE | 2019-09-17 09:34 | ANES.PREANE2 ---
Pre-Anesthetic Assessment Pre-Anesthetic Assessment: Height/Weight: Height 1.6 m Weight 88.451 kg Proposed Procedure: Operation Date: 09/17/19 10:15 Proposed Procedures p EGD/Colon(Not Applicable) - Richard Zavaleta MD s Colonoscopy [id number](Not Applicable) - Richard Zavaleta MD Was Beta Olga taken within 24 hours: N/A Social: Social History: No alcohol and No tobacco Exam: Pre-Anes Outpt Exam: alert, oriented x 3, clear to auscultation bilaterally and regular rate & rhythm Airway: Submandibular: WNL Cervical ROM: WNL MP: 2 Dentition: Full Pulmonary: Pulmonary: None reported CV/HEM: CV/HEM: HTN : : None reported Hepatic: Hepatic: None reported GI: GI: GERD Metabolic: Metabolic: Morbid obesity Musc/skel: Musc/skel: None reported Neuropsych: Neuropsych: None reported Anesthetic Plan: ASA status: 3 Anesthesia: MAC Risk of > 500 ml blood loss (7ml/kg in children): No PFSH Anesthesia PFSH: Social History Smoking and tobacco status: current every day smoker Data Anesthesia Cardiac Studies: No Data to Display
[2019-09-17 10:00] VITALS: BP 148/100; PULSE 85; RESP 18; TEMP 36.4; O2SAT 97
--- NOTE | 2019-09-17 10:20 | W.PM.OPSUD ---
Surgery/Procedure H&P Update DATE OF PROCEDURE: September 17, 2019 DATE H&P PERFORMED: 09/10/19 H&P UPDATE INFORMATION: I have reviewed H&P completed within last 30 days, I have examined patient prior to procedure and No changes to prior documentation PREOP DIAGNOSIS: Abdominal pain PRIMARY INDICATION FOR PROCEDURE: The same PLANNED PROCEDURE: Operation Date: 09/17/19 10:15 Proposed Procedures p EGD/Colon(Not Applicable) - Richard Zavaleta MD s Colonoscopy [id number](Not Applicable) - Richard Zavaleta MD
[2019-09-17] MEDS: sodium chloride 0.9% 1,000 ML 30 ML (10:23)
[2019-09-17 12:20] VITALS: BP 112/89; PULSE 83; RESP 18; TEMP 36.3; O2SAT 96
[2019-09-17 12:30] VITALS: BP 122/90; PULSE 79; RESP 18; O2SAT 98
--- NOTE | 2019-09-17 12:45 | ANE.PACU2 ---
 Inpatient post-anesthesia follow up: Airway intact: Yes Vital signs: Temperature 97.4 F Pulse Rate 79 Respiratory Rate 18 Blood Pressure 122/90 Pulse Oximetry 98 Oxygen Delivery Me thod Room Air Oxygen Flow Rate Fraction of Inspir ed Oxygen Hydration adequate: Yes Nausea and vomiting: No Pain level: 1 Mental status: Baseline
[2019-09-18 05:54] LABS: H. Pylori / CLO Test Negative
== END 2019-09-17 12:49 | disposition home or self-care (01) ==
PROVIDERS: Family Provider Nurse Practitioner Family; PCP Nurse Practitioner Family; Visit Provider Surgery
PROC: 0DJ08ZZ Inspection of Upper Intestinal Tract, Via Natural or Artificial Opening Endoscopic (ICD-10-PCS; CPT 43235; principal; 2019-09-17 10:15)
PROC: 0DJD8ZZ Inspection of Lower Intestinal Tract, Via Natural or Artificial Opening Endoscopic (ICD-10-PCS; CPT 45378; 2019-09-17 10:15)
DX: R10.9 Unspecified abdominal pain (principal); K57.30 Diverticulosis of large intestine without perforation or abscess without bleeding; K44.9 Diaphragmatic hernia without obstruction or gangrene; K29.70 Gastritis, unspecified, without bleeding; K29.80 Duodenitis without bleeding; F17.210 Nicotine dependence, cigarettes, uncomplicated; I10 Essential (primary) hypertension; E66.01 Morbid (severe) obesity due to excess calories; Z68.34 Body mass index [BMI] 34.0-34.9, adult
CPT/HCPCS: 12345; 43239; 45378; 87077; J2704; J7030

== ENCOUNTER 2019-10-03 16:23 | Emergency (ER) | payer BC, SELFPAY ==
--- NOTE | 2019-10-03 16:39 | ED_ITS ---
Entered by Anitra Wong, acting as scribe for Sejal Blanchard Oct 03, 2019 16:23 HPI - Abdominal Pain General: Chief Complaint: Abdominal Pain Stated Complaint: ABD PAIN Time Seen by Provider: 10/03/19 16:38 Source: patient and RN notes reviewed Mode of arrival: ambulatory Limitations: no limitations History of Present Illness: HPI narrative: 39 yo female presents to ED with complaints of abdominal pain. The patient states she has gallstones and was seen by Dr Zavaleta yesterday. She felt fine yesterday afternoon and went to work last night. She woke this morning feeling sick, nauseated, had diarrhea and bad pains in her stomach. She made an appointment with her PCP and was told her gallbladder was probable inflamed. The patient states she has had no fever but feels hot on the inside . MD elicited complaint: abdominal pain Pertinent past history: diverticulitis and gastritis Onset (ago): hour(s) (today) Pain Consistency: constant Location: RUQ Severity: moderate Quality: sharp Radiation: epigastric Migration to: epigastric Exacerbating factors: eating and movement Relieving factors: nothing Context: history of similar episodes Associated Symptoms: Reports diarrhea and nausea; Denies chills, dysuria, fever(s), hematuria and syncope Review of Systems General: Reports: other (negative unless marked) Const: Denies: fever, chills, body aches, fatigue, malaise or diaphoresis Eyes: Denies: change in vision or blurry vision ENMT: Denies: throat pain, painful swallowing, hoarseness, ear pain, ear discharge, Change in hearing or nasal discharge Card: Denies: chest pain, palpitations, irregular heart rhythm, syncope, pre- syncope, shortness of breath on exertion or shortness of breath when lying down Resp: Denies: shortness of breath, productive cough, non-productive cough, wheezing, coughing up blood or chest congestion GI: Reports: nausea and diarrhea : Denies: flank pain, painful urination, urinary frequency, urinary urgency, decreased urine ouput, urinary incontinence or blood in urine Musc: Denies: neck pain, back pain, extremity pain, extremity swelling, joint pain, joint swelling, joint warmth or joint stiffness Skin/Breast: Denies: rash, skin tenderness or yellow skin Neuro: Denies: headache, numbness in extremities, weakness in extremities, changes in sensation, lack of coordination, difficulty walking, dizziness, vertigo or confusion Endo: Denies: excessive thirst, tired all the time, cold intolerance, ex cessive sweating, flushing or hot flashes Juan Manuel/Lymph: Denies: easy bruising, easy bleeding, petechiae or enlarged lymph nodes All/Imm: Denies: hives, throat swelling, tongue swelling, facial swelling or acute wheezing PFSH ED PFSH: Social History Smoking and tobacco status: current every day smoker Physical Exam Const: COMMON NORMALS: no apparent distress, oriented x3, no limitations, healthy appearing and well nourished EXAM LIMITATIONS: no altered mental status GENERAL APPEARANCE: cooperative, well kempt and well developed ORIENTATION/CONSCIOUSNESS: Yes awake Neck/C-Spine: COMMON NORMALS: no meningeal signs and no JVD Chest: COMMONS NORMALS: inspection of chest normal and palpation of chest normal Resp: COMMON NORMALS: normal respiratory effort, no retractions, no use of accessory muscles and clear to auscultation bilaterally EFFORT & INSPECTION: Yes able to speak in complete sentences AUSCULTATION: clear to auscultation bilaterally Cardio: COMMON NORMALS: no JVD, regular rate, regular rhythm, S1 normal heart sound, S2 normal heart sound, no gallops, no clicks, no murmurs and no rub JUGULAR VENOUS DISTENTION: no JVD RATE: regular rate RHYTHM: regular rhythm HEART SOUNDS: S1 normal and S2 normal GI: COMMON NORMALS: soft to palpation, no hepatosplenomegaly and no masses INSPECTION: Yes normal to inspection PALPATION: Yes soft and Yes no hepatosplenomegaly : COMMON NORMALS: Yes no CVA tenderness BLADDER/KIDNEY EXAM: Yes no CVA tenderness Back/Pelvis: COMMON NORMALS: no CVA tenderness Neuro: COMMON NORMALS: oriented x3, CN's II-XII intact bilaterally, moves all extremities, no focal motor deficits and no sensory deficits noted MENINGEAL SIGNS: Yes no meningeal signs Psych: COMMON NORMALS: mental status grossly normal, thought process normal, cooperative, affect normal, speech normal and activity/motor behavior normal APPEARANCE: Yes well kempt SPEECH: Yes normal speech THOUGHT PROCESS: normal thought process Skin: COMMON NORMALS: no rashes or lesions noted, skin turgor normal, no jaundice, no petechiae and no mottling GENERAL SKIN EXAM: no rashes or lesions noted and turgor normal Course Vital Signs: Vital signs: Vital Signs Temperature 98.3 F 10/03/19 19:17 Pulse Rate 104 H 10/03/19 19:17 Respiratory Rate 16 10/03/19 19:17 Blood Pressure 168/88 10/03/19 19:17 Pulse Oximetry 99 10/03/19 19:17 MDM - Abdominal Pain MDM Narrative: Medical decision making narrative: Sara is a nice 39-year-old female who comes in with epigastric abdominal pain. Her ultrasound does not show any acute findings other than gallstones. There is no wall thickening and no sign of common bile duct stone. She has no lower abdominal pain. She does have a UTI. We will treat the UTI. I have offered a CT scan but she declines. She agrees to return should symptoms change or worsen but at this time she would like to be discharged. Lab Data: Attestation: I reviewed the patient's lab results. Labs: Lab Results 10/03/19 10/03/19 10/03/19 Range/Units 17:15 18:00 18:09 WBC 11.7 H (4.0-10.0) 10^3/ uL RBC 5.76 H (4.1-5.3) 10^6/u L Hgb 16.4 H (11.5-15.3) g/dL Hct 49.6 H (37.0-47.0) % MCV 86.1 (81-99) fL MCH 28.5 (28.0-34.0) pg MCHC 33.1 (30.0-36.0) g/dL RDW 13.3 (12.1-15.1) % Plt Count 336 (130-400) 10^3/c mm MPV 10.4 (7.4-10.4) fL Neut % (Auto) 61.2 % Lymph % (Auto) 29.2 % Mckinley % (Auto) 8.0 % Eos % (Auto) 1.0 % Baso % (Auto) 0.3 % Neut # (Auto) 7.2 (1.8-7.7) 10^3/u L Lymph # (Auto) 3.4 (0.8-4.8) 10^3/u L Mckinley # (Auto) 0.9 (0.2-0.9) 10^3/u L Eos # (Auto) 0.1 (0.0-0.8) 10^3/u L Baso # (Auto) 0.0 (0.0-0.1) 10^3/u L Nucleated RBC % (a uto) 0 % Nucleated RBCs # 0.0 /100WBC Sodium 136 (136-145) mmol/L Potassium 3.7 (3.5-5.1) mmol/L Chloride 101 (98-107) mmol/L Carbon Dioxide 22 (22-29) mmol/L Anion Gap 16.7 (5-19) BUN 10 (6-20) mg/dL Creatinine 0.7 (0.5-0.9) mg/dL GFR Calculation 93.2 (90-130) mL/min Glucose 87 (65-115) mg/dL Calculated Osmolal ity 277 L (285-295) mOsm/k g Calcium 9.7 (8.5-10.5) mg/dL Total Bilirubin 0.4 (0.15-1.2) mg/dL AST 17 (0-32) U/L ALT 18 (0-33) U/L Alkaline Phosphata se 78 (35-105) IU/L Total Protein 7.1 (6.6-8.7) g/dL Albumin 4.3 (3.5-5.2) g/dL Globulin 2.8 (1.3-4.6) g/dL Lipase 29 (13-60) U/L Urine Color Yellow (Yellow) Urine Appearance Cloudy (CLEAR) Urine pH 5 (5-7) Ur Specific Gravit y 1.015 (1.005-1.030) Urine Protein Neg (Negative) Urine Glucose (UA) Norm (Normal) Urine Ketones Negative (Negative) Urine Blood Neg (Negative) Urine Nitrate Negative (Negative) Urine Bilirubin Neg (NEGATIVE) Urine Urobilinogen Norm (Negative) mg/dL Ur Leukocyte Tyra ase 2+ H (Negative) Urine RBC 5-10 H (0-2) /hpf Urine WBC >100 H (0-5) /hpf Ur Squamous Epith Cells 5-10 H (0-5) Urine Bacteria 2+ H (NONE) Imaging Data ^: Other Imaging: Radiologist's impression: [facility] [address] [place] [address] Ultrasound Report Signed Patient: Jackelyn Wylie #: [id number] : 1980Acct#:[id number] Age/Sex: 39 / FADM Date: 10/03/19 Loc: ERRoom/Bed: Attending Dr: Ordering Provider/Ordering MD: Sejal Blanchard DO Date of Service: 10/03/19 Procedure(s): US gall bladder [id number] Accession Number(s): [id number] Report Number: [id number] PROCEDURE INFORMATION: Exam: US Abdomen Limited, Right Upper Quadrant Exam date and time: 10/03/2019 4:54 PM Age: 39 years old Clinical indication: Abdominal pain; Other: Ruq; Patient HX: Known gallstones. TECHNIQUE: Imaging protocol: Real-time ultrasound of the abdomen with image documentation. Examination was focused on the right upper quadrant. COMPARISON: US gall bladder [id number] 09/05/2019 12:47 PM FINDINGS: Liver: Normal. No masses. Gallbladder: There are stones in the gallbladder. No wall thickening. No pericholecystic fluid. Common bile duct: No stones. No dilation. Pancreas: The pancreas is partially obscured by bowel gas. Right kidney: No mass. No hydronephrosis. US/US gall bladder [id number] IMPRESSION: Cholelithiasis. Dictated By:Padmini Dalton MD Signed By:Padmini Dalton MDSigned Date/Time:10/03/19 Discharge Plan Discharge Patient Disposition: Home, Self-Care Clinical Impression: Epigastric abdominal pain UTI (urinary tract infection) Qualifiers: Urinary tract infection type: acute cystitis Hematuria presence: without hematuria Qualified Code(s): N30.00 - Acute cystitis without hematuria Condition: Stable Prescriptions: New cefdinir 300 mg capsule 300 mg PO Q12H 10 Days Qty: 20 RF: 0 Carafate 1 gram tablet 1 gm PO Q6H 28 Days Qty: 112 RF: 0 No Action lisinopril-hydrochlorothiazide 20-25 mg tablet 1 tab PO DAILY RF: 0 hydrocodone-acetaminophen [[place]avenport] 5-325 mg tablet 1 tab PO Q6H PRN (Reason: pain) Qty: 14 RF: 0 ondansetron HCl [Zofran] 4 mg tablet 4 mg PO QID PRN (Reason: nausea and vomiting) Qty: 14 RF: 0 Prilosec OTC 20 mg tablet,delayed release (DR/EC) 20 mg PO BID 84 Days RF: 0 Discharge Orders: Discharge Order (Routine); Ordered 10/03/19 Ordered By: Sejal Blanchard Referrals: [facility], [facility] [Primary Care Provider] - 1-3 days Discharge Diet: Advance as tolerated Discharge Activity: Increase activity as tolerated Patient Instructions: Urinary Tract Infection in Women (ED), Abdominal Pain (ED) Activity Restrictions/Additional Instructions: Please return to the ER immediately for any of the signs or symptoms listed on your discharge instruction sheets, worsening/changing of your symptoms, you are not getting better as quickly as expected, or for ANY other cause or concerns. Discharge Date/Time: 10/03/19 19:18 Coding Level of Care Code ED Cognos Administrator for Chg Fwd Exam Comprehensive The documentation recorded by the Judith alexis Valerie R, accurately reflects the service I personally performed and the decisions made by Santo orona Eli N Oct 03, 2019 16:23
[2019-10-03 16:40] VITALS: BP 127/106; PULSE 95; RESP 16; TEMP 36.8; O2SAT 98; BMI 34.5
--- NOTE | 2019-10-03 16:42 | USR_ITS ---
PROCEDURE INFORMATION: Exam: US Abdomen Limited, Right Upper Quadrant Exam date and time: 10/03/2019 4:54 PM Age: 39 years old Clinical indication: Abdominal pain; Other: Ruq; Patient HX: Known gallstones. TECHNIQUE: Imaging protocol: Real-time ultrasound of the abdomen with image documentation. Examination was focused on the right upper quadrant. COMPARISON: US gall bladder [id number] 09/05/2019 12:47 PM FINDINGS: Liver: Normal. No masses. Gallbladder: There are stones in the gallbladder. No wall thickening. No pericholecystic fluid. Common bile duct: No stones. No dilation. Pancreas: The pancreas is partially obscured by bowel gas. Right kidney: No mass. No hydronephrosis. US/US gall bladder [id number] IMPRESSION: Cholelithiasis.
[2019-10-03 17:17] VITALS: O2SAT 98
[2019-10-03 17:23] LABS: Basophils % 0.3 %; Eosinophils # 0.1 10^3/uL (0.0-0.8); Hematocrit 49.6 % (37.0-47.0); Hemoglobin 16.4 g/dL (11.5-15.3); Lymphocytes # 3.4 10^3/uL (0.8-4.8); Lymphocytes % 29.2 %; Mean Corpuscular HGB Conc 33.1 g/dL (30.0-36.0); Mean Corpuscular Hemoglobin 28.5 pg (28.0-34.0); Mean Corpuscular Volume 86.1 fL (81-99); Mean Platelet Volume 10.4 fL (7.4-10.4); Monocytes # 0.9 10^3/uL (0.2-0.9); Neutrophils # 7.2 10^3/uL (1.8-7.7); Neutrophils % 61.2 %; Nucleated Red Blood Cells % 0 %; Platelet Count 336 10^3/cmm (130-400); Red Blood Count 5.76 10^6/uL (4.1-5.3); Red Cell Distribution Width 13.3 % (12.1-15.1); White Blood Count 11.7 10^3/uL (4.0-10.0)
[2019-10-03] MEDS: pantoprazole 40 mg SDV 80 MG IVP (17:29)
[2019-10-03] MEDS: morphine 4 mg/mL SDV 1 mL IVP (17:29)
[2019-10-03] MEDS: sodium chloride 0.9% 1,000 ML 999 ML IV (17:29)
[2019-10-03] MEDS: ondansetron 2 mg/ML SDV 2 mL 4 MG IVP (17:30)
--- NOTE | 2019-10-03 17:39 | PC.NURSE ---
portable ultrasound at bedside
[2019-10-03] MEDS: lidocaine 2% viscous 15 ML, aluminum-mag hydrox-simethicon 30 ML, sucralfate oral liq 1 GM PO (18:09)
[2019-10-03 18:11] VITALS: BP 134/93; PULSE 92; O2SAT 99
[2019-10-03 18:23] LABS: Alanine Aminotransferase 18 U/L (0-33); Albumin Level 4.3 g/dL (3.5-5.2); Alkaline Phosphatase 78 IU/L (35-105); Anion Gap 16.7 (5-19); Aspartate Amino Transferase 17 U/L (0-32); Blood Urea Nitrogen 10 mg/dL (6-20); Calcium 9.7 mg/dL (8.5-10.5); Carbon Dioxide 22 mmol/L (22-29); Chloride 101 mmol/L (98-107); Globulin 2.8 g/dL (1.3-4.6); Glomerular Filtration Rate 93.2 mL/min (90-130); Glucose 87 mg/dL (65-115); Lipase 29 U/L (13-60); Osmolality Calculated 277 mOsm/kg (285-295); Potassium 3.7 mmol/L (3.5-5.1); Sodium 136 mmol/L (136-145); Total Bilirubin 0.4 mg/dL (0.15-1.2); Total Protein 7.1 g/dL (6.6-8.7)
[2019-10-03 18:27] LABS: Add Urine Culture? Yes; Bacteria Urine 2+; Bilirubin Urine Neg (NEGATIVE); Blood Urine Neg (Negative); Glucose Urine UA Norm (Normal); Ketones Urine Negative (Negative); Leukocyte Esterase Urine 2+ (Negative); Nitrate Urine Negative (Negative); Protein Urine Neg (Negative); Specific Gravity, Urine 1.015 (1.005-1.030); Urine Appearance Cloudy (CLEAR); Urine Color Yellow (Yellow); Urobilinogen Urine Norm (Negative); WBC Urine >100 /hpf (0-5); pH Urine 5 (5-7)
[2019-10-03] MEDS: cefTRIAXone 1,000 MG in sodium chloride 0.9% (plus) 50 ML 100 MG IV (18:45)
[2019-10-03 19:17] VITALS: BP 168/88; PULSE 104; RESP 16; TEMP 36.8; O2SAT 99
== END 2019-10-03 19:18 | disposition home or self-care (01) ==
PROVIDERS: Emergency Provider Emergency Medicine; Family Provider Nurse Practitioner Family; PCP Nurse Practitioner Family
DX: R10.13 Epigastric pain (principal); N39.0 Urinary tract infection, site not specified; F17.200 Nicotine dependence, unspecified, uncomplicated
CPT/HCPCS: 12345; 36415; 76705; 80053; 81001; 83690; 85025; 87086; 96360; 96361; 96365; 96375; 99283; C9113; J0696; J2270; J2405; J7030

== ENCOUNTER 2019-10-23 06:33 | Day surgery (SDC) | payer BC, SELFPAY ==
[2019-10-23 07:10] VITALS: BMI 35.2
[2019-10-23 07:38] VITALS: BP 130/100; PULSE 86; RESP 18; TEMP 36.2; O2SAT 98
--- NOTE | 2019-10-23 07:40 | ANES.PREANE2 ---
Pre-Anesthetic Assessment Pre-Anesthetic Assessment: Height/Weight: Height 1.6 m Weight 90.265 kg Preop Diagnosis: Perianal abscess Proposed Procedure: Operation Date: 10/23/19 08:20 Proposed Procedures p Incision And Drainage of Perianal Abscess 36355 K61.0(Not Applicable) - Abe Allen MD Last intake: Intake Last Liquid Date 10/22/19 Last Solid Date 10/22/19 Social: Packs per day: 1/2 Pack years: 10 Exam: Pre-Anes Outpt Exam: alert, oriented x 3, clear to auscultation bilaterally and regular rate & rhythm Airway: Submandibular: WNL Cervical ROM: WNL MP: 1 Dentition: Caps Additional comments: left top front '17 CV/HEM: CV/HEM: HTN Comments: off meds x 2weeks GI: GI: Hiatus hernia Anesthetic Plan: ASA status: 3 Anesthesia: General PFSH Anesthesia PFSH: Social History Smoking and tobacco status: current every day smoker Female Reproductive History: Date of last menstrual period: 07/09/09 Data Anesthesia Cardiac Studies: No Data to Display
[2019-10-23] MEDS: sodium chloride 0.9% 1,000 ML 30 ML IV (08:00)
[2019-10-23] MEDS: lidocaine 1% INJ 20 mL SUBCUT (08:11)
--- NOTE | 2019-10-23 08:43 | PM.OP ---
Operative Report Date of procedure: October 23, 2019 Pre-op Diagnosis: Perianal abscess Post-op Diagnosis: 3 x 3 cm perianal abscess Procedure Done: Incision and drainage of perianal abscess Specimens removed/disposition: None Surgeon: Abe Allen Anesthesia: MAC Estimated blood loss (mL): 10 Condition: stable Disposition: PACU Procedure: The patient was taken to the operating room and placed in right lateral position under MAC after IV antibiotic had been administered. The perianal region was prepped and draped in a sterile manner. 30 cc of 1% lidocaine with 0.5% Marcaine was infiltrated around the abscess which had started draining. Using a 15 blade a 3 cm radial incision was made, loculations were taken down bluntly and the abscess was irrigated saline. The wound was packed with quarter inch ribbon gauze. The patient was transferred to recovery room in stable condition.
[2019-10-23 08:50] VITALS: BP 121/87; PULSE 80; RESP 18; TEMP 36.6; O2SAT 96
--- NOTE | 2019-10-25 15:36 | W.PM.OPSUD ---
Surgery/Procedure H&P Update DATE OF PROCEDURE: October 23, 2019 DATE H&P PERFORMED: 10/22/19 H&P UPDATE INFORMATION: I have reviewed H&P completed within last 30 days, I have examined patient prior to procedure and No changes to prior documentation PREOP DIAGNOSIS: Perianal abscess PLANNED PROCEDURE: Operation Date: 10/23/19 08:20 Proposed Procedures p Incision And Drainage of Perianal Abscess 94349 K61.0(Not Applicable) - Abe Allen MD
== END 2019-10-23 09:30 | disposition home or self-care (01) ==
PROVIDERS: Family Provider Nurse Practitioner Family; PCP Nurse Practitioner Family; Visit Provider Surgery
PROC: (CPT 46050; principal; 2019-10-23 08:10)
DX: K61.0 Anal abscess (principal); F17.210 Nicotine dependence, cigarettes, uncomplicated
CPT/HCPCS: 46050; 12345; J0690; J2001; J2704; J3010; J3490; J7030

== ENCOUNTER 2019-11-17 10:35 | Day surgery (SDC) | payer BC, SELFPAY ==
[2019-11-14 10:56] VITALS: BMI 34.5
[2019-11-17] VITALS (12 sets, daily range): BP systolic 118–144; BP diastolic 81–103; PULSE 72–95; RESP 14–20; TEMP 36.2–36.3; O2SAT 90–100
--- NOTE | 2019-11-17 11:16 | P.ANESASSM_ITS ---
Pre-Anesthetic Assessment Pre-Anesthetic Assessment: Height/Weight: Height 1.6 m Weight 88.451 kg Temp Pulse Resp BP Pulse Ox 97.3 F L 81 20 H 144/100 100 11/17/19 10:47 11/17/19 10:47 11/17/19 10:47 11/17/19 10:47 11/17/19 10:47 Preop Diagnosis: Symptomatic cholelithiasis Proposed Procedure: Operation Date: 11/17/19 12:00 Proposed Procedures p Laparoscopic Cholecystectomy 58335 K80.20(Not Applicable) - Richard Zavaleta MD Familial anesthetic complications: none Was Beta Olga taken within 24 hours: N/A Last intake: Intake Last Liquid Date 11/16/19 Last Liquid Time 22:00 Last Solid Date 11/16/19 Last Solid Time 18:00 Social: Social History: Tobacco and No alcohol Packs per day: 0.5 ppd Exam: Pre-Anes Outpt Exam: alert, oriented x 3, clear to auscultation bilaterally and regular rate & rhythm Airway: Cervical ROM: WNL MP: 2 Additional comments: missing Pulmonary: Pulmonary: None reported CV/HEM: CV/HEM: None reported : : None reported Hepatic: Hepatic: None reported GI: GI: None reported Metabolic: Metabolic: Morbid obesity Musc/skel: Musc/skel: None reported Neuropsych: Neuropsych: None reported Anesthetic Plan: ASA status: 2 Anesthesia: General Risk of > 500 ml blo od loss (7ml/kg in children): No PFSH Anesthesia PFSH: Social History Smoking and tobacco status: current every day smoker Female Reproductive History: Date of last menstrual period: 07/09/09 Data Anesthesia Cardiac Studies: No Data to Display
--- NOTE | 2019-11-17 11:57 | W.PM.OPSUD ---
Surgery/Procedure H&P Update DATE OF PROCEDURE: November 17, 2019 DATE H&P PERFORMED: 11/12/19 H&P UPDATE INFORMATION: I have reviewed H&P completed within last 30 days, I have examined patient prior to procedure and No changes to prior documentation CHANGES TO PREVIOUS DOCUMENTATION: The same PREOP DIAGNOSIS: Symptomatic cholelithiasis PLANNED PROCEDURE: Operation Date: 11/17/19 12:00 Proposed Procedures p Laparoscopic Cholecystectomy 57492 K80.20(Not Applicable) - Richard Zavaleta MD
[2019-11-17] MEDS: sodium chloride 0.9% 1,000 ML 30 ML IV (12:08)
[2019-11-17] MEDS: lidocaine 2% INJ 20 mL INJECTION (12:32)
--- NOTE | 2019-11-17 13:49 | PM.OP ---
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 After thorough history physical examination and reviewing the chart and images with my personal interpretation I did student assistance counselor the patient for laparoscopic cholecystectomy possible and patient agreed to proceed. Informed consent per Procedure: Patient was identified in the holding area and taken back to the operative suite, placed in supine position intubated by anesthesia . Time-out was done verifying the patient's name/date of /planned procedure and destination after the procedure, all were in agreement. SCDs confirmed to be functioning, preoperative antibiotics administered per protocol, and beta shannon protocol was confirmed. Patient was appropriately secured to the table, footboard was applied to the OR table, before prep and drape anesthesia was asked to tilt the table back and forth to make sure that the patient is appropriately secured and she was. Prep and drape of the abdomen was done under the usual sterile technique, followed by that supraumbilical skin incision,skin incision was done by a 15 blade knife, and stay sutures were applied to the fascia and Stearns trocar technique was used to enter the abdominal without injuring any abdominal viscera, started by low flow gas insufflation followed by a high flow, started with a 10 mm laparoscope and under direct vision there was no evidence of any injuries, the scope then switched to a 30? ,10 millimeter scope and under direct visualization 5 millimeter trocar was inserted in the epigastric region followed by two 5 mm trocars were inserted in the right upper quadrant that was done after injection of local lidocaine 2% at all incision sites. Gallbladder showed chronic calculus cholecystitis Patient was then positioned in the head up and tilted to the left dissection started by taking adhesions down using Maryland forceps with heat, continued dissection until I identified the critical view of the cystic duct and cystic artery where seen connected to the gallbladder.Clips were applied on the cystic duct towards the common bile duct 1 towards the gallbladder then divided is in sharp scissors, 2 clips were then applied onto the cystic artery and 1 towards the gallbladder and divided by sharp scissors. There was an additional traversing vessel that was clipped and divided as well. Dissection was then carried along of the gallbladder from the gallbladder fossa using cautery as well as sharp dissection with heat energy. The gallbladder then was dissected out from the gallbladder fossa totally , cholecystectomy was then achieved and was placed in an Endo Catch bag and then retrieved from the Stearns trocar site under direct visualization using a 5 mm 30? scope through the epigastric trocar, specimen was then passed to the circulating nurse to go for permanent pathology,irrigation and hemostasis was done to the gallbladder fossa after hemostasis was secured, final survey laparoscopy was done that showed no injuries. Suction irrigation was obtained, noticed to have bleeding from the gallbladder fossa managed by surgical clips cauterization as well as application of Surgi-Nolan and large piece of Surgicel for appropriate hemostasis. The supraumbilical fascial defect was then closed using interrupted Vicryl sutures using a fascial closure device ;Reyes Beaver under direct visualization Gas was allowed to deflate,Trocars were then taken out under direct vision there was no evidence of bleeding Specimen was passed to the circulating nurse for permanent pathology. No drains were placed and the supraumbilical incision as well as all trocar sites were closed by by 4-0 Monocryl to approximate the skin edges of the supraumbilical incision, dressing was applied in the form of Dermabond and the patient patient got extubated and was taken to recovery area in a stable condition. Count of sponges, needles and instruments were completed at the end of the procedure I was present for the whole entire procedure.
[2019-11-17] MEDS: fentaNYL 50 mcg/mL INJ 2mL IVP (14:11)
[2019-11-17] MEDS: meperidine 50 mg/mL INJ 12.5 MG IVP (14:17)
--- NOTE | 2019-11-17 14:42 | SUR.PHASEI ---
1417 PT AWAKE USED BEDPAN , PT SHIVERING WARM BLANKETS X 3 SEE MED GIVEN FOR PAIN AND SHIVERING
[2019-11-17] MEDS: HYDROcodone-acetaminophen 5-325 mg Tablet 1 TAB PO (14:53)
== END 2019-11-17 15:25 | disposition home or self-care (01) ==
PROVIDERS: PCP Nurse Practitioner Family; Visit Provider Surgery
PROC: 0FT44ZZ Resection of Gallbladder, Percutaneous Endoscopic Approach (ICD-10-PCS; CPT 47562; principal; 2019-11-17 12:00)
DX: K80.10 Calculus of gallbladder with chronic cholecystitis without obstruction (principal); E66.01 Morbid (severe) obesity due to excess calories; Z68.34 Body mass index [BMI] 34.0-34.9, adult; F17.210 Nicotine dependence, cigarettes, uncomplicated; I10 Essential (primary) hypertension
CPT/HCPCS: 47562; 12345; 88304; 96365; J0131; J0690; J1100; J2001; J2175; J2405; J2704; J2710; J3010; J3490; J7030

== ENCOUNTER 2019-12-11 13:06 | Outpatient (CLI) | payer BC, SELFPAY ==
--- NOTE | 2019-12-11 14:30 | CT_ITS ---
WS: [id number] CT ABDOMEN AND PELVIS WITH CONTRAST HISTORY: abdominal pain TECHNIQUE: Imaging performed of the abdomen and pelvis with IV contrast. Single phase imaging of the abdomen. Coronal and sagittal reformats are submitted. All CT scans at [facility] use at least one of these dose optimization techniques: automated exposure control; mA and/or kV adjustment per patient size (includes targeted exams where dose is matched to clinical indication); or iterativ e reconstruction. IV CONTRAST: Omnipaque 300; 95 mL IV. Oral contrast: Yes. DLP: 1354.17 mGy.cm COMPARISON: None available. Lower thorax: Linear atelectasis at the lung bases. Heart is normal size. No hiatal hernia. Liver/biliary system: Normal size liver. There are a few scattered hypodensities within the liver whi ch are too small to characterize. Gallbladder: Gallbladder has been removed. In the gallbladder fossa. There are surgical clips. There is an also a fluid collection with a few foci of air in the gallbladder fossa. There is adjacent mild stranding in the gallbladder fossa. Pancreas: Normal. Spleen: Normal. Adrenal glands: Normal. Right kidney: Cortical hypodensities. No solid mass or obstruction. Left kidney: Normal. Aorta: Normal. Lymphadenopathy: None. Free fluid: There is a very small amount of fluid along the RIGHT paracolic gutter with thickening of the perirenal fascia. GI tract: There is mucosal edema and thickening of the ascending colon with a moderate amount of danette cent inflammation and a small amount of adjacent free fluid. Normal appendix. A few diverticula in th e distal colon. Abdominal wall: Unremarkable abdominal wall. No hernia. Pelvis: Uterus is been surgically removed. Small follicles within each ovary. Negative urinary bladde r. Bones: Unremarkable. CT/CT abdomen pelvis w con* [id number] IMPRESSION: 1. Status post recent removal of the gallbladder. There is a small minimally c omplex collection at the gallbladder fossa containing air. This may be due to s urgicele material that was placed at surgery. There is a small foci of air deve loping abscess is not excluded. 2. Moderate mucosal thickening with adjacent inflammation and a small amount o f fluid involving the mid ascending colon. Consider colitis versus diverticulit is as possible etiologies. 3. Normal appendix. 4. Diverticulosis without diverticulitis in the distal colon.
[2019-12-11] MEDS: iohexol 300 mg/mL 100 mL Btl IV (15:36)
[2019-12-11] MEDS: iohexol 300 mg/mL 50 mL Btl VAGINAL (15:36)
== END 2019-12-11 13:07 | disposition home or self-care (01) ==
LOC: RAD 13:09
PROVIDERS: PCP Nurse Practitioner Family; Visit Provider Surgery
DX: R10.9 Unspecified abdominal pain (principal); Z90.49 Acquired absence of other specified parts of digestive tract; K57.90 Diverticulosis of intestine, part unspecified, without perforation or abscess without bleeding
CPT/HCPCS: 74177

== ENCOUNTER 2020-01-14 10:08 | Outpatient (CLI) | payer BC, SELFPAY ==
--- NOTE | 2020-01-14 11:30 | CT_ITS ---
WS: [id number] CT ABDOMEN AND PELVIS WITH CONTRAST HISTORY: ABDOMINAL PAIN TECHNIQUE: Imaging performed of the abdomen and pelvis with IV contrast. Single phase imaging of the abdomen. Coronal and sagittal reformats are submitted. All CT scans at [facility] use at least one of these dose optimization techniques: automated exposure control; mA and/or kV adjustment per patient size (includes targeted exams where dose is matched to clinical indication); or iterativ e reconstruction. IV CONTRAST: Omnipaque 300; 95 mL IV. Oral contrast: Yes. DLP: 1102.13 mGy.cm COMPARISON: 12/11/2019 Lower thorax: Lung bases are clear. Heart is normal size. No hiatal hernia. Liver/biliary system: A few scattered hypodensities in the liver are again noted. Probably related to mild duct dilatation. Similar to the prior study. Gallbladder: Prior cholecystectomy. Surgical clips and fluid at the surgical bed are noted. This low- attenuation at the gallbladder bed which is probably associated Surgicel that was placed during surge ry. Pancreas: Normal. Spleen: Normal. Adrenal glands: Normal. Right kidney: Subcentimeter cortical cyst mid kidney. No obstruction. Left kidney: Normal. Aorta: Normal. Lymphadenopathy: None. Free fluid: None. GI tract: Normal appendix. Recently described acute inflammatory process involving the ascending colo n and hepatic flexure has significantly improved and essentially resolved. There is moderate fecal re tention. A few scattered diverticula without diverticulitis. Abdominal wall: Unremarkable abdominal wall. No hernia. Pelvis: Prior hysterectomy. No free fluid in the pelvis. Bones: Unremarkable. CT/CT abdomen pelvis w con* [id number] IMPRESSION: 1. Interval resolution of the recently described acute inflammatory process in volving the ascending colon and hepatic flexure. 2. Prior cholecystectomy with surgical seal remaining at the gallbladder bed.
[2020-01-14] MEDS: barium sulfate 450 mL Oral Susp PO (11:34)
[2020-01-14] MEDS: iohexol 300 mg/mL 100 mL Btl IV (11:52)
== END 2020-01-14 10:09 | disposition home or self-care (01) ==
LOC: RAD 10:10
PROVIDERS: PCP Nurse Practitioner Family; Visit Provider Surgery
DX: R10.9 Unspecified abdominal pain (principal)
CPT/HCPCS: 74177

== ENCOUNTER 2020-08-27 23:49 | Emergency (ER) | payer BC, SELFPAY ==
[2020-08-27 23:54] VITALS: BP 186/106; PULSE 90; RESP 22; TEMP 36.1; O2SAT 97; BMI 35.6
--- NOTE | 2020-08-28 00:08 | XRR_ITS ---
PROCEDURE INFORMATION: Exam: XR Left Femur Exam date and time: 08/28/2020 12:10 AM Age: 40 years old Clinical indication: Injury or trauma; Blunt trauma; Thigh or upper leg; Patient HX: Fall from slipping on ice. C/O upper back, left thigh, and right ankle pain. History of ankle deformity. TECHNIQUE: Imaging protocol: XR Left femur. Views: 2 views. COMPARISON: US SoftTissue/Extrem Lmt [id number] 03/07/2019 9:03 AM FINDINGS: Bones/joints: Unremarkable. No acute fracture. Soft tissues: Unremarkable. XR/XR femur LT min 2V* [id number] IMPRESSION: No acute findings.
--- NOTE | 2020-08-28 00:08 | XRR_ITS ---
PROCEDURE INFORMATION: Exam: XR Thoracic Spine, 3 Views Exam date and time: 08/28/2020 12:10 AM Age: 40 years old Clinical indication: Injury or trauma; Blunt trauma (contusions or hematomas); Patient HX: Fall from slipping on ice. C/O upper back, left thigh, and right ankle pain. History of ankle deformity. TECHNIQUE: Imaging protocol: XR of the thoracic spine, 3 views. COMPARISON: No relevant prior studies available. FINDINGS: Bones/joints: Normal. No acute fracture. Normal alignment. Soft tissues: Unremarkable. XR/XR thoracic spine 2V [id number] IMPRESSION: No acute findings.
--- NOTE | 2020-08-28 00:08 | XRR_ITS ---
PROCEDURE INFORMATION: Exam: XR Right Ankle Exam date and time: 08/28/2020 12:10 AM Age: 40 years old Clinical indication: Injury or trauma; Blunt trauma; Patient HX: Fall from slipping on ice. C/O upper back, left thigh, and right ankle pain. History of ankle deformity. TECHNIQUE: Imaging protocol: XR Right ankle. Views: 3 or more views. COMPARISON: CR Ankle 3 views, RIGHT* [id number] 03/28/2019 2:11 PM FINDINGS: Bones/joints: There has been a remote osteotomy of the distal right fibular diametaphysis. There is osseous fusion of the tibiotalar joint. Soft tissues: Normal. XR/XR ankle RT min 3V* [id number] IMPRESSION: There are no acute osseous findings.
[2020-08-28] MEDS: ondansetron 4 MG Tablet PO (00:15)
[2020-08-28 00:17] VITALS: RESP 18; O2SAT 99
[2020-08-28] MEDS: HYDROmorphone 1 mg/mL INJ 1 mL 2 MG IM (00:17)
--- NOTE | 2020-08-28 01:13 | ED_ITS ---
HPI - Fall General: Chief Complaint: Fall Stated Complaint: fall Time Seen by Provider: 08/27/20 23:54 History of Present Illness: HPI Narrative: -year-old female who fell on the ice twice at work. She complains of right ankle pain (she has had a previous surgery on this ankle, with fusion). She also complains of mid back and left thigh pain. complaint: fall Onset (ago): hour(s) Fall from: standing Fall witnessed: yes, by bystander Place fall occurred: work Loss of consciousness: None Prolonged down time: no Symptoms prior to fall: none Context: tripped/slipped (on ice x 2) Location of injury: back Location of injury - extremities: Left: thigh and Right: ankle Associated symptoms-after fall: Reports difficulty walking; Denies abdominal pain, chest pain, confusion or headache(s) Review of Systems Const: Denies: fever(s) or chills Card: Denies: chest pain or palpitations Resp: Denies: dyspnea GI: Denies: abdominal pain or vomiting Neuro: Reports: difficulty walking; Denies: headache(s) or confusion PFSH ED PFSH: Medical History (Updated 08/28/20 @ 01:57 by Grant Cosby DO) Cholelithiasis History of cervical cancer Hypertension Surgical History Abdominal pain History of ankle surgery right= 5 different surgeries, History of History of colonoscopy (~08/2019) History of esophagogastroduodenoscopy (EGD) (~08/2019) History of hysterectomy History of incision and drainage (~10/23/19) Perianal abscess History of laparoscopic cholecystectomy (~11/2019) Family History Denies family history of Anesthesia complication Bleeding disorder Social History Smoking and tobacco status: current every day smoker Female Reproductive History: Date of last menstrual period: 07/09/09 Physical Exam : COMMON NORMALS: Yes no CVA tenderness BLADDER/KIDNEY EXAM: Yes no CVA tenderness Back/Pelvis: COMMON NORMALS: no CVA tenderness THORACIC SPINE/UPPER BACK: Yes pain with ROM and Yes thoracic spinal tenderness T-spine tenderness location: T6 and T7 Extremity: NARRATIVE EXTREMITY EXAM: Exam the left thigh reveals a negative logroll test. There is pain with active straight leg raise testing in the thigh. This is relieved when bending the knee. There is no hip tenderness. Exam of the right ankle reveals mild soft tissue swelling laterally. There is tenderness over the ankle joint line. There is postsurgical change on x-ray. This appears stable. Course Vital Signs: Vital signs: Vital Signs Temperature 97.0 F L 08/27/20 23:54 Pulse Rate 92 08/28/20 02:11 Respiratory Rate 18 08/28/20 02:11 Blood Pressure 149/95 08/28/20 02:11 Pulse Oximetry 96 08/28/20 02:11 MDM - Fall MDM Narrative: Medical decision making narrative: X-rays are all read as negative. The patient is likely experienced a quadricep strain on the left. As for the back, there may be a tiny compression at T7, and we will treat her as such. Outpatient follow-up with PCP. TLSO brace. Pain control. Discharge Plan Discharge Patient Disposition: Home Clinical Impression: Compression fracture Strain of left hip and thigh Qualifiers: Encounter type: initial encounter Qualified Code(s): S76.012A - Strain of muscle, fascia and tendon of left hip, initial encounter Contusion of ankle, right Qualifiers: Encounter type: initial encounter Qualified Code(s): S90.01XA - Contusion of right ankle, initial encounter Condition: Stable Prescriptions: New Percocet 7.5-325 mg tablet 1 tab PO Q6H PRN (Reason: pain) Qty: 10 RF: 0 No Action cyclobenzaprine 10 mg tablet 10 mg PO TID PRN (Reason: muscle spasm) Qty: 30 RF: 1 [place] 5-325 mg tablet 1 tab PO Q6H PRN (Reason: pain) Qty: 28 RF: 0 Discharge Orders: Discharge ED (Routine); Ordered 08/28/20 Ordered By: Grant Cosby Referrals: [facility] [Primary Care Provider] - Patient Instructions: Muscle Strain (ED), Vertebral Compression Fracture (ED), Foot Contusion (ED) Activity Restrictions/Additional Instructions: Obtain your brace at a [facility]. Wear it until cleared by your physician. Limit lifting to 10 to 15 pounds until cleared. Return for s ignificant numbness, weakness, etc. developing to the extremities. Coding Level of Care Code ED Manager [employer] for [employer] Fwd Exam Expanded Problem Focused
[2020-08-28 02:11] VITALS: BP 149/95; PULSE 92; RESP 18; O2SAT 96
== END 2020-08-28 02:13 | disposition home or self-care (01) ==
PROVIDERS: Emergency Provider Emergency Medicine; PCP Nurse Practitioner Family
DX: S76.012A Strain of muscle, fascia and tendon of left hip, initial encounter (principal); S90.01XA Contusion of right ankle, initial encounter; Z85.41 Personal history of malignant neoplasm of cervix uteri; I10 Essential (primary) hypertension; F17.210 Nicotine dependence, cigarettes, uncomplicated; W00.0XXA Fall on same level due to ice and snow, initial encounter
CPT/HCPCS: 72070; 73552; 73610; 96372; 99283; J1170; Q0162

== ENCOUNTER 2020-09-02 06:00 | Outpatient (CLI) | payer BC, SELFPAY | END 2020-09-02 23:59 | disposition home or self-care (01) | LOC: SPT 02-24 13:01 | PROVIDERS: PCP Nurse Practitioner Family; Referring Provider Emergency Medicine; Visit Provider Emergency Medicine | DX: Z46.89 Encounter for fitting and adjustment of other specified devices (principal); M48.54XD Collapsed vertebra, not elsewhere classified, thoracic region, subsequent encounter for fracture with routine healing; X58.XXXD Exposure to other specified factors, subsequent encounter | CPT/HCPCS: L0456 ==

== ENCOUNTER → 2023-08-23 14:32 | Outpatient (BNVA) | payer MEDICAID, SELFPAY | PROVIDERS: PCP Nurse Practitioner Family; Visit Provider Podiatrist Foot & Ankle Surgery | DX: M25.571 Pain in right ankle and joints of right foot (principal); M19.071 Primary osteoarthritis, right ankle and foot; M19.171 Post-traumatic osteoarthritis, right ankle and foot | CPT/HCPCS: 73610 ==

== ENCOUNTER → 2024-03-31 14:09 | Outpatient (BNVA) | payer MEDICAID, SELFPAY | PROVIDERS: PCP Nurse Practitioner Family; Visit Provider Specialist | DX: M77.11 Lateral epicondylitis, right elbow (principal) | CPT/HCPCS: 73080 ==

== ENCOUNTER 2024-06-06 23:33 | Emergency (ER) | payer MEDICAID, SELFPAY ==
[2024-06-06 23:41] VITALS: BP 122/95; PULSE 85; RESP 20; TEMP 36.6; O2SAT 97; BMI 36.6
--- NOTE | 2024-06-06 23:47 | ECG_ITS ---
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 Measurements Intervals Douglas Rate: 82 P: 49 MA: 155 QRS: 44 QRSD: 87 T: 31 QT: 379 QTc: 443 Interpretive Statements SINUS RHYTHM WITH OCCASIONAL VENTRICULAR PREMATURE COMPLEXES NONSPECIFIC T-WAVE ABNORMALITY Compared to ECG 09/05/2019 12:23:01 Ventricular premature complex(es) now present Possible ischemia no longer present T-wave abnormality still present Electronically Signed On 06-07-2024 10:23:48 ASSOCIATE CHEMIST by Jeff Burgos M.D. [email or web address]
--- NOTE | 2024-06-06 23:47 | XRR_ITS ---
PROCEDURE INFORMATION: Exam: XR Chest Exam date and time: 06/07/2024 12:05 AM Age: 44 years old Clinical indication: Chest pressure; Patient HX: C/O chest pain TECHNIQUE: Imaging protocol: Radiologic exam of the chest. Views: 1 view. COMPARISON: CR XR chest 1V portable [id number] 09/05/2019 12:32 PM FINDINGS: Lungs: Unremarkable. No consolidation. Pleural spaces: Unremarkable. No pleural effusion. No pneumothorax. Heart/Mediastinum: Unremarkable. No cardiomegaly. Bones/joints: Unremarkable. XR/XR chest 1V portable [id number] IMPRESSION: No acute findings.
--- NOTE | 2024-06-06 23:48 | ED_ITS ---
HPI - Back Pain/Injury 2 General: Chief Complaint: Back Pain/Injury Stated Complaint: back pain, anxiety Time Seen by Provider: 06/06/24 23:35 Source: patient and EMS Mode of arrival: EMS Limitations: no limitations History of Present Illness: Patient is a nice 44-year-old female presents to ED today via EMS for evaluation of episodes of chest pain and back pain starting today. Patient states she has had intermittent episodes of chest pain located to her lower sternal/epigastric region over the past few days. She states symptoms seem to come out of nowhere and are not exertionally related. She has noticed that symptoms seem to worsen when she drinks tea. She has no known history of cardiac problems. She states today she began having pain in her upper back between her shoulder blades that she noticed when she was outside smoking a cigarette. She states she was driving here to the emergency department when she felt very anxious and began feeling like she was having a panic attack. She states she pulled over the [facility] who then brought her here. She states she injured her back several years ago but has not had any recent injury or trauma. She states her back normally does not bother her. The back is worse with movement and palpation. Upon arrival to the emergency department she is not having any chest pain. MD elicited complaint: back pain Onset (ago): hour(s) Timing: constant Severity: moderate Location: thoracic spine Exacerbating factors: movement and other (palpation) Relieving factors: none Associated symptoms: Deny abdominal pain, chills, dysuria, fatigue, fever(s), hematuria, nausea, syncope or vomiting Work related injury: No Related Data Home Medications Medication Instructions Recorded Confirmed lisinopril 20 tab PO 08/23/23 03/13/24 mg-hydrochlorothiazide 12.5 mg tablet Previous Rx's Medication Instructions Recorded Susie Osuna Brace to right #1 ea 08/23/23 meloxicam 15 mg tablet 15 mg PO DAILY #30 tabs 03/31/24 Allergies Allergy/AdvReac Type Severity Reaction Status Date / Time diphenhydramine Allergy ALGY-Difficulty Verified 04/01/24 08:21 [From Benadryl] Breathing Review of Systems 2 Const: Denies: fever(s), chills, body aches, fatigue or malaise ENMT: Denies: throat pain or odynophagia Card: Reports: chest pain (none currently); Denies: palpitations, irregular heart rhythm, edema, swelling of feet/ankles, lightheadedness, syncope, pre-syncope, dyspnea on exertion, orthopnea, leg pain with exertion or acrocyanosis Resp: Denies: dyspnea, productive cough, non-productive cough, wheezing, pain on inspiration, hemoptysis or chest congestion GI: Denies: abdominal pain, nausea, vomiting or diarrhea : Denies: flank pain, dysuria or hematuria Musc: Reports: back pain; Denies: neck pain, extremity pain, extremity swelling, joint pain or joint swelling Skin/Breast: Denies: rash Neuro: Denies: headache(s), numbness in extremities, weakness in extremities or sensory changes Psych: Reports: anxiety PFSH ED 2 PFSH: Medical History (Updated 06/07/24 @ 01:31 by JUJU Carpenter) Hypertension History of cervical cancer Cholelithiasis Surgical History History of laparoscopic cholecystectomy (~11/2019) History of incision and drainage (~10/23/19) Perianal abscess History of esophagogastroduodenoscopy (EGD) (~08/2019) History of colonoscopy (~08/2019) Abdominal pain History of History of hysterectomy History of ankle surgery right= 5 different surgeries, Family History Denies family history of Anesthesia complication Bleeding disorder Social History Smoking and tobacco/nicotine status: current every day tobacco/nicotine user Physical Exam 2 Const: COMMON NORMALS: no acute distress, patient oriented x3, no limitations, healthy appearing, alert and well nourished GENERAL APPEARANCE: cooperative ORIENTATION/CONSCIOUSNESS: Yes awake, Yes oriented to person, Yes oriented to place and Yes oriented to time HENMT: COMMON NORMALS: normocephalic and atraumatic HEAD & SCALP: n ormocephalic and atraumatic Neck/C-Spine: COMMON NORMALS: full ROM, no lymphadenopathy, supple and no meningeal signs Chest: COMMONS NORMALS: normal inspection of the chest and normal palpation of entire chest wall Resp: COMMON NORMALS: normal respiratory effort and clear to auscultation bilaterally AUSCULTATION: clear to auscultation bilaterally Cardio: COMMON NORMALS: regular rate and regular rhythm RATE: regular rate RHYTHM: regular rhythm GI: COMMON NORMALS: Normal to inspection, nondistended, normoactive bowel sounds present, Soft to palpation, No hepatosplenomegaly present and no masses INSPECTION: Yes normal to inspection AUSCULTATION: Yes normoactive bowel sounds PALPATION: Yes Soft to palpation, Yes Tenderness to palpation present (GI) (mildly tender to epigastric) and Yes No hepatosplenomegaly present : COMMON NORMALS: Yes no CVA tenderness BLADDER/KIDNEY EXAM: Yes no CVA tenderness Back/Pelvis: COMMON NORMALS: no CVA tenderness, thoracic and lumbar spine normal to inspection and straight leg raise negative bilaterally THORACIC SPINE/UPPER BACK: Yes thoracic ROM normal, No ROM limited, Yes pain with ROM, Yes thoracic spinal tenderness and Yes paraspinal muscle tenderness LUMBAR SPINE/LOWER BACK: Yes lumbar ROM normal, No lumbar spinal tenderness, No paraspinal muscle tenderness and No paraspinal muscle spasm Extremity: COMMON NORMALS: normal to inspection, capillary refill normal, no clubbing, cyanosis or edema, no calf tenderness and no pedal edema GENERAL: Y es normal exam except as noted Neuro: COMMON NORMALS: patient oriented x3, moves all extremities, no focal motor deficits and no sensory deficits noted SENSORIUM/ORIENTATION: Yes alert, Yes oriented to person, Yes oriented to place and Yes oriented to time MENINGEAL SIGNS: Yes no meningeal signs Skin: COMMON NORMALS: no rashes or lesions noted GENERAL SKIN EXAM: no rashes or lesions noted Course 2 Vital Signs: Vital signs: Vital Signs Temperature 98 F 06/06/24 23:41 Pulse Rate 79 06/07/24 00:53 Respiratory Rate 15 06/07/24 00:53 Blood Pressure 128/74 06/07/24 00:53 Pulse Oximetry 97 06/07/24 00:53 MDM - Back Pain/Injury Medical Decision Making Patient clinically appears in no acute distress. Her vital signs are stable. Back pain is easily reproducible with movement and palpation. She has not had any episodes of chest pain while here. Her EKG is nonischemic. Workup of CBC, CMP, baseline troponin, and D-dimer are nonactionable. She does have a white count of 16.9. No evidence for infection at this time. Her CXR is unremarkable. She did get relief after IV Toradol and Norflex and feels like her back pain has improved. At this time I would have a low suspicion for acute coronary syndrome, dissection, PE, or other emergent life-threatening etiologies. Patient states she has primary care follow-up already scheduled for Sunday. Return to ED precautions given. Medical Records I reviewed the patient's medical records. Labs I reviewed the patient's lab results. 06/07/24 00:00 06/07/24 00:00 Radiology Impressions Chest X-Ray 06/06/24 23:47 IMPRESSION: No acute findings. Laboratory Results WBC 16.92 10^3/uL (3.29-11.43) H 06/07/24 00:00 RBC 5.55 10^6/uL (3.85-5.65) 06/07/24 00:00 Hgb 15.90 g/dL (11.27-16.99) 06/07/24 00:00 Hct 46.8 % (36-47) 06/07/24 00:00 MCV 84.3 fl (85-98) L 06/07/24 00:00 MCH 28.6 pg (27-33) 06/07/24 00:00 MCHC 34.0 g/dL (30-55) 06/07/24 00:00 RDW 12.9 % (12.1-15.1) 06/07/24 00:00 Plt Count 338 10^3/cmm (157-399) 06/07/24 00:00 MPV 10.8 fL (7.4-10.4) H 06/07/24 00:00 Neut % (Auto) 57.6 % 06/07/24 00:00 Lymph % (Auto) 33.8 % 06/07/24 00:00 [place] % (Auto) 6.7 % 06/07/24 00:00 Eos % (Auto) 1.2 % 06/07/24 00:00 Baso % (Auto) 0.3 % 06/07/24 00:00 Neut # (Auto) 9.73 10^3/uL (1.8-7.7) H 06/07/24 00:00 Lymph # (Auto) 5.7 10^3/uL (0.8-4.8) H 06/07/24 00:00 [place] # (Auto) 1.1 10^3/uL (0.2-0.9) H 06/07/24 00:00 Eos # (Auto) 0.2 10^3/uL (0.0-0.8) 06/07/24 00:00 Baso # (Auto) 0.1 10^3/uL (0.0-0.1) 06/07/24 00:00 Nucleated RBC % (auto) 0 % 06/07/24 00:00 Nucleated RBCs # 0.0 /100WBC 06/07/24 00:00 D-Dimer 0.28 ug/mLFEU (0-0.59) 06/07/24 00:58 Sodium 134 mmol/L (136-145) L 06/07/24 00:00 Potassium 4.3 mmol/L (3.5-5.1) 06/07/24 00:00 Chloride 100 mmol/L (98-107) 06/07/24 00:00 Carbon Dioxide 22 mmol/L (22-29) 06/07/24 00:00 Anion Gap 16.3 (5-19) 06/07/24 00:00 BUN 12 mg/dL (6-20) 06/07/24 00:00 Creatinine 0.7 mg/dL (0.5-0.9) 06/07/24 00:00 GFR Calculation 90.9 mL/min (90-130) 06/07/24 00:00 Glucose 102 mg/dL (65-115) 06/07/24 00:00 Calculated Osmolality 278 mOsm/kg (285-295) L 06/07/24 00:00 Calcium 9.3 mg/dL (8.5-10.5) 06/07/24 00:00 Total Bilirubin 0.2 mg/dL (0.15-1.2) 06/07/24 00:00 AST 19 U/L (0-32) 06/07/24 00:00 ALT 27 U/L (0-33) 06/07/24 00:00 Alkaline Phosphatase 104 U/L (35-105) 06/07/24 00:00 Troponin T Baseline < 6 ng/L (0-10) 06/07/24 00:00 Total Protein 6.6 g/dL (6.6-8.7) 06/07/24 00:00 Albumin 4.4 g/dL (3.5-5.2) 06/07/24 00:00 Globulin 2.2 g/dL (1.3-4.6) 06/07/24 00:00 All radiology interpretation(s) finalized by discharge Discharge Plan Discharge Patient Disposition: Home Clinical Impression: Musculoskeletal back pain Condition: Stable Prescriptions: No Action lisinopril-hydrochlorothiazide 20-12.5 mg tablet PO (DME) Nyconstance Osuna Brace to right See Rx Instructions .Route .MEDSUPPLY Qty: 1 0RF Rx Instructions: As directed by [facility] meloxicam 15 mg tablet 15 mg PO DAILY Qty: 30 1RF Discharge Orders: Discharge ED (Routine); Ordered 06/07/24 Ordered By: Janeen Gant Referrals: Carole Rothman NP [Primary Care Provider] - Activity Restrictions/Additional Instructions: As we discussed, please follow-up with primary care on Sunday as scheduled. You need to return to the emergency department for further episodes of chest pain, shortness of breath, difficulty breathing, severe back pain, lightheadedness/dizziness/passing out episodes/generally feeling worse or unwell, or any other concerns you may have. I hope you begin to feel better soon. Coding Level of Care Code ED Waiter for Elizabeth Murillo
[2024-06-07] MEDS: ketorolac 30 mg/mL INJ IVP
[2024-06-07] MEDS: orphenadrine 30 mg/mL Inj 2 mL 60 MG IVP (00:04)
[2024-06-07] MEDS: lidocaine 2% viscous 15 ML, aluminum-mag hydrox-simethicon 30 ML, sucralfate oral liq 1 GM PO (00:04)
[2024-06-07 00:16] LABS: Basophils # 0.1 10^3/uL (0.0-0.1); Basophils % 0.3 %; Eosinophils # 0.2 10^3/uL (0.0-0.8); Eosinophils % 1.2 %; Hematocrit 46.8 % (36-47); Lymphocytes # 5.7 10^3/uL (0.8-4.8); Lymphocytes % 33.8 %; Mean Corpuscular Hemoglobin 28.6 pg (27-33); Mean Corpuscular Volume 84.3 fl (85-98); Mean Platelet Volume 10.8 fL (7.4-10.4); Monocytes # 1.1 10^3/uL (0.2-0.9); Monocytes % 6.7 %; Neutrophils # 9.73 10^3/uL (1.8-7.7); Neutrophils % 57.6 %; Nucleated Red Blood Cells % 0 %; Platelet Count 338 10^3/cmm (157-399); Red Blood Count 5.55 10^6/uL (3.85-5.65); Red Cell Distribution Width 12.9 % (12.1-15.1); White Blood Count 16.92 10^3/uL (3.29-11.43)
[2024-06-07 00:26] LABS: Troponin(5th) Baseline < 6 ng/L (0-10)
[2024-06-07 00:27] LABS: Alanine Aminotransferase 27 U/L (0-33); Albumin Level 4.4 g/dL (3.5-5.2); Alkaline Phosphatase 104 U/L (35-105); Aspartate Amino Transferase 19 U/L (0-32); Blood Urea Nitrogen 12 mg/dL (6-20); Calcium 9.3 mg/dL (8.5-10.5); Carbon Dioxide 22 mmol/L (22-29); Chloride 100 mmol/L (98-107); Creatinine Clr Calc Pharmacy 107.4193; Globulin 2.2 g/dL (1.3-4.6); Glomerular Filtration Rate 90.9 mL/min (90-130); Glucose 102 mg/dL (65-115); Osmolality Calculated 278 mOsm/kg (285-295); Sodium 134 mmol/L (136-145); Total Bilirubin 0.2 mg/dL (0.15-1.2); Total Protein 6.6 g/dL (6.6-8.7)
[2024-06-07 00:29] LABS: Anion Gap 16.3 (5-19); Potassium 4.3 mmol/L (3.5-5.1)
[2024-06-07 00:53] VITALS: BP 128/74; PULSE 79; RESP 15; O2SAT 97
[2024-06-07 01:18] LABS: D Dimer 0.28 ug/mLFEU (0-0.59)
[2024-06-07 01:45] VITALS: BP 125/79; PULSE 75; RESP 17; O2SAT 98
== END 2024-06-07 01:46 | disposition home or self-care (01) ==
PROVIDERS: Emergency Provider Physician Assistant; PCP Nurse Practitioner Family
DX: M54.89 Other dorsalgia (principal); Z72.0 Tobacco use; I10 Essential (primary) hypertension; Z85.41 Personal history of malignant neoplasm of cervix uteri
CPT/HCPCS: 71045; 80053; 84484; 85025; 85378; 93005; 96374; 96375; 99285; J1885; J2360